=== PATIENT | male | born 1995 | race Caucasian/White ===

== ENCOUNTER 2017-12-31 18:00 | Emergency (ER) | payer SELFPAY ==
[~2017-12-31] VITALS: Ht 170.2 cm; Wt 76.7 kg
[2017-12-31 18:19] VITALS: TEMP 36.8; Ht 170.2 cm; Wt 76.7 kg
[2017-12-31] MEDS ORDERED: SODIUM CHLORIDE 0.9% 1000ML 1,000 ML IV STA (18:42)
[2017-12-31] MEDS ORDERED: VNTHFA/IN INH (18:42)
[2017-12-31] MEDS ORDERED: KETOROLAC TROMETHAMINE 30 MG/ML VIAL IV STA (18:42)
[2017-12-31] MEDS ORDERED: ALBUT/IPRATROP 3MG/0.5MG NEB 3 ML VIAL INH ONE (18:45)
[2017-12-31] MEDS ORDERED: DEXAMETHASONE **PF** INJ 10 MG/ML VIAL PO ONE (18:45)
--- NOTE | 2017-12-31 18:50 | EMERGENCY ROOM VISIT NOTE ---
History Report prepared by Judson: Paxton Avina Under the Supervision of: Dr. Ramon Gonzales M.D. First contact with patient: 18:35 Chief Complaint: RESPIRATORY PROBLEMS Stated Complaint: WAS TREATED W/INHALER,HARD TO BREATH History of Present Illness The patient is a 22 year old male who presents to the Emergency Room with complaints of worsening shortness of breath beginning a few weeks ago. The patient states he was evaluated at [facility] a week ago and was treated for pneumonia-like symptoms. He reports he was given a DuoNeb and inhaler; he was not given an antibiotic. The patient notes he was told to return to the ED if it worsens. He states he felt better until today. The patient reports he was driving here and started breathing slowly. He notes he developed a really sharp chest pain and felt two "pops" in his chest. The patient states he had three episodes on the way here. He reports his vision then began to blur and his hands and feet started tingling. The patient notes he has a history of anxiety, and he thinks breathing slowly caused his symptoms. He states he has also had a cough the past few weeks, but it has resolved. The patient reports he smokes 1.5 packs of cigarettes a day. He notes he is still using the inhaler, and his last dose was one hour ago. The patient states he does not have a PCP. He denies fevers, chills, nausea, vomiting, and a history of blood clots in the legs or lungs. Source of History: patient Onset: a few weeks ago Quality: other (SOB) Timing: worsening Modifying Factors (Worsening): breathing (slowly) Associated Symptoms: + cough (resolved), + chest pain (sharp pain with pop in his chest), No fevers, No chills, No nausea, No vomiting Note: Associated symptoms: blurry vision Review of Systems See HPI for pertinent positives and negatives. A total of ten systems were reviewed and were otherwise negative. Past Medical & Surgical Medical Problems: (1) Alcohol intoxication (2) Ankle sprain (3) Elbow injury (4) Facial contusion (5) Fall (6) Foot sprain (7) Hand abrasion (8) Hand injury (9) Hand laceration (10) Head injury (11) No Known Active Medical Problems (12) Visit for suture removal Family History Diabetes mellitus Social History Smoking Status: Current Every Day Smoker Alcohol Use: occasionally Drug Use: marijuana Marital Status: in relationship Housing Status: lives with significant other Occupation Status: employed Current/Historical Medications Scheduled Azithromycin (Zithromax), 250 MG PO DAILY Prednisone (Prednisone), 3 TAB PO DAILY Scheduled PRN Albuterol Hfa (Ventolin Hfa), 1 PUFF INH Q4 PRN for Shortness of Breath Ibuprofen Tab (Motrin), 800 MG PO Q8H PRN for Pain Allergies Coded Allergies: No Known Allergies (Unverified , 12/31/17) Physical Exam Vital Signs Date Time Temp Pulse Resp B/P (MAP) Pulse Ox O2 Delivery O2 Flow Rate FiO2 12/31/17 21:44 85 15 146/95 98 12/31/17 21:00 107 19 139/86 97 12/31/17 20:00 90 26 137/74 99 12/31/17 19:39 109 12/31/17 19:31 126/79 12/31/17 19:17 99 Room Air 12/31/17 19:14 90 20 97 Room Air 12/31/17 19:10 92 136/81 12/31/17 19:01 Room Air 12/31/17 18:19 36.8 99 20 135/83 100 Room Air Physical Exam GENERAL: Awake, alert, fatigued-appearing, in no distress HENT: Normocephalic, atraumatic. Oropharynx and mucous membranes are dry, otherwise unremarkable. EYES: Normal conjunctiva. Sclera non-icteric. NECK: Supple. No nuchal rigidity. FROM. No JVD. RESPIRATORY: Scant intermittent wheeze. CARDIAC: Regular rate, normal rhythm. Extremities warm and well perfused. Pulses equal. ABDOMEN: Soft, non-distended. No tenderness to palpation. No rebound or guarding. No masses. RECTAL: Deferred. MUSCULOSKELETAL: Chest examination reveals no tenderness. The back is symmetrical on inspection without obvious abnormality. There is no CVA tenderness to palpation. No joint edema. LOWER EXTREMITIES: Calves are equal size bilaterally and non-tender. No edema. No discoloration. NEURO: Normal sensorium. No sensory or motor deficits noted. SKIN: No rash or jaundice noted. Medical Decision & Procedures ER Provider Diagnostic Interpretation: X-ray: Per my interpretation, radiologist review. SINGLE VIEW CHEST CLINICAL HISTORY: Atypical chest pain. FINDINGS: An AP, portable, upright chest radiograph is compared to study dated 04/10/2015. The cardiomediastinal silhouette is unremarkable. There is minimal left basilar atelectasis. The lungs and pleural spaces are otherwise clear. No pneumothorax is seen. The bony thorax is grossly intact. IMPRESSION: No active disease in the chest. Electronically signed by: Lukas Murillo M.D. 12/31/2017 7:18 PM Dictated Date/Time: 12/31/2017 7:17 PM Laboratory Results 12/31/17 19:07 Red Blood Count 5.07, Mean Corpuscular Volume 89.2, Mean Corpuscular Hemoglobin 30.6, Mean Corpuscular Hemoglobin Concent 34.3, Mean Platelet Volume 8.7, Neutrophils (%) (Auto) 57.6, Lymphocytes (%) (Auto) 26.1, Monocytes (%) (Auto) 12.4, Eosinophils (%) (Auto) 2.9, Basophils (%) (Auto) 0.5, Neutrophils # (Auto ) 3.80, Lymphocytes # (Auto) 1.72, Monocytes # (Auto) 0.82, Eosinophils # (Auto ) 0.19, Basophils # (Auto) 0.03 12/31/17 19:07 Test 12/31/17 18:55 12/31/17 19:07 Influenza Type A Antigen Neg for Influ A (NEG) Influenza Type B Antigen Neg for Influ B (NEG) White Blood Count 6.59 K/uL (4.8-10.8) Red Blood Count 5.07 M/uL (4.7-6.1) Hemoglobin 15.5 g/dL (14.0-18.0) Hematocrit 45.2 % (42-52) Mean Corpuscular Volume 89.2 fL (80-100) Mean Corpuscular Hemoglobin 30.6 pg (25-34) Mean Corpuscular Hemoglobin Concent 34.3 g/dl (32-36) Platelet Count 215 K/uL (130-400) Mean Platelet Volume 8.7 fL (7.4-10.4) Neutrophils (%) (Auto) 57.6 % Lymphocytes (%) (Auto) 26.1 % Monocytes (%) (Auto) 12.4 % Eosinophils (%) (Auto) 2.9 % Basophils (%) (Auto) 0.5 % Neutrophils # (Auto) 3.80 K/uL (1.4-6.5) Lymphocytes # (Auto) 1.72 K/uL (1.2-3.4) Monocytes # (Auto) 0.82 K/uL (0.11-0.59) Eosinophils # (Auto) 0.19 K/uL (0-0.5) Basophils # (Auto) 0.03 K/uL (0-0.2) RDW Standard Deviation 46.3 fL (36.4-46.3) RDW Coefficient of Variation 14.3 % (11.5-14.5) Immature Granulocyte % (Auto) 0.5 % Immature Granulocyte # (Auto) 0.03 K/uL (0.00-0.02) Anion Gap 8.0 mmol/L (3-11) Est Creatinine Clear Calc Drug Dose 112.1 ml/min Estimated GFR () 129.3 Estimated GFR (Non- 111.6 BUN/Creatinine Ratio 9.3 (10-20) Calcium Level 9.0 mg/dl (8.5-10.1) Total Bilirubin 0.7 mg/dl (0.2-1) Direct Bilirubin 0.2 mg/dl (0-0.2) Aspartate Amino Transf (AST/SGOT) 113 U/L (15-37) Alanine Aminotransferase (ALT/SGPT) 143 U/L (12-78) Alkaline Phosphatase 113 U/L (45-117) Troponin I < 0.015 ng/ml (0-0.045) Total Protein 7.6 gm/dl (6.4-8.2) Albumin 4.0 gm/dl (3.4-5.0) Lipase 297 U/L (73-393) Laboratory results reviewed by me Medications Administered Medications (Trade) Dose Ordered Sig/Steve Route Start Time Stop Time Status Last Admin Dose Admin Sodium Chloride 1,000 ml @ 999 mls/hr Q1H1M STAT IV 12/31/17 18:42 12/31/17 19:42 DC 12/31/17 19:10 999 MLS/HR Albuterol/ Ipratropium (Duoneb) 12 ml ONE ONCE INH 12/31/17 18:45 12/31/17 18:49 DC 12/31/17 19:12 12 ML Dexamethasone Sodium Phosphate (Dexamethasone Inj Pf) 10 mg NOW ONCE PO 12/31/17 18:45 12/31/17 18:49 DC 12/31/17 19:10 10 MG Ketorolac Tromethamine (Toradol Inj) 15 mg NOW STAT IV 12/31/17 18:42 12/31/17 18:49 DC 12/31/17 19:11 15 MG Azithromycin (Zithromax Tab) 500 mg NOW STAT PO 12/31/17 21:21 12/31/17 21:22 DC 12/31/17 21:36 500 MG ECG Per My Interpretation Indication: SOB/dyspnea Rate (beats per minute): 94 Rhythm: normal sinus Findings: no acute ischemic change, other (Normal axis) ED Course 1840: The patient was evaluated in room C12B. A complete history and physical exam was performed. 2007: I reevaluated the patient and discussed his current exam and lab findings. 2130: I reevaluated the patient. Discussed results and discharge instructions: he verbalized understanding and agreement. The patient is ready for discharge. Medical Decision I reviewed the patient's past medical history, medications, and the nursing notes as described above. Differential diagnosis: Etiologies such as infections, reactive airway disease, pneumonia, pneumothorax , COPD, CHF, cardiac ischemia, pulmonary embolism, musculoskeletal, gastrointestinal, as well as others were entertained. The patient is a 22-year-old gentleman with a past medical history of 1.5 pack per day smoking who presents emergency department with cough congestion, shortness of breath, chest pain per hpi. Of note, the symptoms occur in the setting of having similar symptoms last week seen on outside hospital and treated with steroid and albuterol. On arrival, the patient is uncomfortable but no acute distress, afebrile stable vital signs. On exam the patient has scant intermittent wheeze. EKG unremarkable. Chest x-ray negative for pneumonia. Labs unremarkable including WBC and troponin within normal limits. Influenza negative. She feeling improved after IV fluid hydration, dexamethasone, continuous neb. Given the patient's smoking history and report of productive sputum will treat with azithromycin for bronchitis as well. I counseled the patient extensively on the importance of smoking cessation. Findings and plan for follow-up reviewed with patient. Patient agreeable and d/c 'd per discharge instructions. Medication Reconcilliation Current Medication List: was personally reviewed by me Blood Pressure Screening Patient's blood pressure: Normal blood pressure Blood pressure disposition: Did not require urgent referral Impression Primary Impression: Bronchitis Scribe Attestation The scribe's documentation has been prepared under my direction and personally reviewed by me in its entirety. I confirm that the note above accurately reflects all work, treatment, procedures, and medical decision making performed by me. Departure Information Dispostion Home / Self-Care Prescriptions Ibuprofen Tab (MOTRIN) 800 Mg Tab 800 MG PO Q8H Y for Pain for 7 Days, #21 TAB Prov: Ramon Gonzales M.D. 12/31/17 Prednisone (Prednisone) 20 Mg Tab 3 TAB PO DAILY for 4 Days, #12 TAB FOR 4 DAYS Prov: Ramon Gonzales M.D. 12/31/17 Azithromycin (Zithromax) 250 Mg Tab 250 MG PO DAILY, #4 TAB Prov: Ramon Gonzales M.D. 12/31/17 Referrals No Doctor, Assigned (PCP) Forms HOME CARE DOCUMENTATION FORM, IMPORTANT VISIT INFORMATION, WORK / SCHOOL INSTRUCTIONS Patient Instructions ED Bronchitis Asthmatic, My [facility] Additional Instructions Please follow up with your primary care physician in the next 1-3 days for re- evaluation. You likely have a bronchitis. Otherwise, your exam, EKG, chest xray, and lab results did not show signs of an emergent condition at this time. Prednisone and Azithromycin as directed. Acetaminophen and ibuprofen for pain and fever as needed. Saline nasal spray or [id number] Mucinex to help thin and clear mucus. Use your albuterol inhaler 2 puffs every 4 hours for the next 48 hours and then as needed thereafter. Drink plenty of fluids to ensure hydration. Return to the emergency department for worsening symptoms as described in the accompanying instructions.
[2017-12-31 19:14] VITALS: PULSE 90; O2SAT 97
[2017-12-31 19:18] LABS: BASO % 0.5 %; BASO ABS # 0.03 K/uL (0-0.2); EOS % 2.9 %; EOS ABS # 0.19 K/uL (0-0.5); HEMATOCRIT 45.2 % (42-52); HEMOGLOBIN 15.5 g/dL (14.0-18.0); IG# 0.03 K/uL (0.00-0.02); LYMPH % 26.1 %; LYMPH ABS # 1.72 K/uL (1.2-3.4); MEAN CELL VOLUME 89.2 fL (80-100); MEAN CORPUSCULAR HEMOGLOBIN 30.6 pg (25-34); MEAN CORPUSCULAR HGB CONC 34.3 g/dl (32-36); MEAN PLATELET VOLUME 8.7 fL (7.4-10.4); MONO % 12.4 %; MONO ABS # 0.82 K/uL (0.11-0.59); NEUT % 57.6 %; PLATELET COUNT 215 K/uL (130-400); RED CELL DISTRIBUTION WIDTH CV 14.3 % (11.5-14.5); RED CELL DISTRIBUTION WIDTH SD 46.3 fL (36.4-46.3); WHITE BLOOD COUNT 6.59 K/uL (4.8-10.8)
--- NOTE | 2017-12-31 19:20 | DIAGNOSTIC IMAGING REPORT ---
SINGLE VIEW CHEST CLINICAL HISTORY: Atypical chest pain. FINDINGS: An AP, portable, upright chest radiograph is compared to study dated 04/10/2015. The cardiomediastinal silhouette is unremarkable. There is minimal left basilar atelectasis. The lungs and pleural spaces are otherwise clear. No pneumothorax is seen. The bony thorax is grossly intact. IMPRESSION: No active disease in the chest. Electronically signed by: Lukas Murillo M.D. 12/31/2017 7:18 PM Dictated Date/Time: 12/31/2017 7:17 PM
[2017-12-31 19:37] LABS: ALT/SGPT 143 U/L (12-78); BLOOD UREA NITROGEN 9 mg/dl (7-18); CARBON DIOXIDE 28 mmol/L (21-32); CREATININE 0.95 mg/dl (0.60-1.40); GLUCOSE 99 mg/dl (70-99); LIPASE 297 U/L (73-393); POTASSIUM 3.2 mmol/L (3.5-5.1); SODIUM 140 mmol/L (136-145)
[2017-12-31 19:42] LABS: ALKALINE PHOSPHATASE 113 U/L (45-117); AST/SGOT 113 U/L (15-37); TOTAL PROTEIN 7.6 gm/dl (6.4-8.2)
[2017-12-31 19:44] LABS: INFLUENZA B ANTIGEN Neg for Influ B (NEG)
[2017-12-31] MEDS ORDERED: AZITHROMYCIN 250 MG TAB PO STA (21:21)
[2017-12-31] MEDS ORDERED: PRED20TA PO (21:22)
[2017-12-31] MEDS ORDERED: AZIT250T PO (21:22)
[2017-12-31] MEDS ORDERED: IBUP-1451 PO (21:23)
[2017-12-31 21:44] VITALS: BP 146/95; PULSE 85; O2SAT 98
== END 2017-12-31 21:36 | disposition home or self-care (01) ==
LOC: C.EDB 18:01 → C.EDC 21:36
DX: J40 Bronchitis, not specified as acute or chronic (principal); Z71.6 Tobacco abuse counseling; F17.210 Nicotine dependence, cigarettes, uncomplicated

== ENCOUNTER 2018-01-05 19:56 | Emergency (ER) | payer SELFPAY ==
[~2018-01-05] VITALS: Ht 170.2 cm; Wt 76.1 kg
[~2018-01-05 19:56] MED LIST: AZIT250T PO; IBUP-1451 PO; PRED20TA PO; VNTHFA/IN INH
[2018-01-05 19:57] VITALS: BP 138/78; PULSE 133; TEMP 36.3; O2SAT 97; Ht 170.2 cm; Wt 76.1 kg
--- NOTE | 2018-01-05 20:56 | DIAGNOSTIC IMAGING REPORT ---
L ELBOW MIN 3 VIEWS ROUTINE CLINICAL HISTORY: Left elbow pain COMPARISON: None. DISCUSSION: The fat pads are not displaced. There is posterior soft tissue edema. No acute fractures or dislocations are visualized. IMPRESSION: Moderate posterior soft tissue edema. No fractures or dislocations identified. Electronically signed by: Adiel Aparicio M.D. 01/05/2018 8:54 PM Dictated Date/Time: 01/05/2018 8:53 PM
--- NOTE | 2018-01-05 20:56 | DIAGNOSTIC IMAGING REPORT ---
L WRIST MIN 3 VIEWS ROUTINE CLINICAL HISTORY: Left wrist pain status post trauma COMPARISON: None. DISCUSSION: No fractures or dislocations are visualized. IMPRESSION: No fractures or dislocations identified. Electronically signed by: Adiel Aparicio M.D. 01/05/2018 8:55 PM Dictated Date/Time: 01/05/2018 8:54 PM
--- NOTE | 2018-01-06 14:47 | EMERGENCY ROOM VISIT NOTE ---
ED Visit Note First contact with patient: 20:01 Chief Complaint: Left elbow pain. History of Present Illness: Mr. Rocky mcneal is a 22-year-old white male who ambulates into the ED accompanied by his girlfriend and baby complaining of posterior and medial left elbow pain. Patient reports he was at home last night carrying a box weighing approximately 35 pounds. He was walking backwards and accidentally tripped and fell onto his elbow. He reports he immediately had pain in the elbow but it was mild in intensity. Throughout the day he has noted increasing pain, swelling and bruising of the elbow. He reports he left work because it was becoming more severe and elected to come to the emergency department for further evaluation and care. Currently he is complaining of a sharp and throbbing pain over the posterior medial aspect of the elbow. He rates his discomfort 6/10. His pain is nonradiating. His pain worsens with palpation in the last few degrees of flexion. He has not identified any alleviating factors related to the pain. He has not taken any medications for pain prior to arrival at the hospital. While doing his physical examination he also noted tenderness over the distal radius in the area of the styloid process. He reports this is not as severe as his other pain and had not noted any discomfort in this area prior to my physical examination. He denies any lightheaded or dizziness before the fall. He reports he did not strike his head at the time of the fall or have a loss of consciousness. He has had no signs of head injury since the fall. He denies neck pain, shoulder pain, humerus pain, previous significant injuries or surgeries to the elbow or wrist, left upper extremity weakness/numbness/tingling. Review of Systems: As noted above in history of present illness. 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 Allergies to Medications: Patient denies. Social History: Patient is currently employed; he feels safe in his home environment; he admits to tobacco and alcohol use. Physical Examination: Vital Signs: Date Time Temp Pulse Resp B/P (MAP) Pulse Ox O2 Delivery O2 Flow Rate FiO2 01/05/18 19:57 36.3 133 18 138/78 97 Room Air GENERAL: 22-year-old male in mild distress due to pain, nontoxic-appearing, afebrile and hemodynamically stable. NEUROLOGICAL: Awake, alert and oriented to person, place and time. Answering questions appropriately and following commands. Normal gait. Good hand eye coordination. No focal motor or sensory deficits. SKIN: Warm, dry and pink. LEFT UPPER EXTREMITY: No gross bony deformities. No tenderness throughout the shoulder or proximal humerus. Mild to moderate tenderness over the posterior and medial aspect of the elbow. I do not appreciate any bony deformities or crepitus. There is moderate swelling and bruising over the medial aspect of the elbow extending distally to the proximal forearm. He has near full range of motion with exception of the last few degrees of flexion which increases pressure in his elbow. Decreased range of motion in pronation and supination due to pain. No tenderness throughout the proximal radius and ulna. Mild tenderness over the styloid process of the ulna without bony deformity, bony crepitus, swelling or ecchymosis. Full range of motion of flexion, extension and radial and ulnar deviation of the wrist and flexion and extension of all fingers. Distal pulses, capillary refill and light sensation is intact throughout the extremity. ED Course: Patient is assessed as noted above. Patient's medication list was reviewed. Patient was offered pain medication and refused. Left Elbow X-Rays: Were read by myself and the radiologist showing no acute fractures or dislocations. Posterior soft tissue swelling was noted and no displacement of the anterior posterior fat pads. Left Wrist X-Rays: Were read by myself and the radiologist showing no acute fractures or dislocations. Patient was placed in a sling. Patient was educated about today's findings and instructed on his treatment plan ; he verbalized understanding and agreement with this plan. Clinical Impression: Left elbow contusion. Left wrist pain. Status post fall. Disposition: Patient discharged home in stable condition accompanied by his girlfriend; prior to departure he was reassessed and subjectively reported he was pain-free Plan: Comfort measures were discussed with the patient including alternating ibuprofen Tylenol, ice, sling use and rest. Patient was encouraged to follow-up with orthopedics if no better in 6-7 days. Patient was encouraged return the ED for worsening/uncontrolled swelling, uncontrolled pain, left arm weakness/numbness/tingling or any new/concerning symptoms.
== END 2018-01-05 21:15 | disposition home or self-care (01) ==
LOC: C.EDB 19:56 → C.EDD 21:15
DX: S50.02XA Contusion of left elbow, initial encounter (principal); M25.532 Pain in left wrist; W01.198A Fall on same level from slipping, tripping and stumbling with subsequent striking against other object, initial encounter; Y93.01 Activity, walking, marching and hiking; Y99.8 Other external cause status; Z98.890 Other specified postprocedural states; Z72.0 Tobacco use

== ENCOUNTER 2018-05-10 01:31 | Emergency (ER) | payer OTHER ==
[~2018-05-10] VITALS: Ht 170.2 cm; Wt 73.4 kg
[~2018-05-10 01:31] MED LIST changes: -IBUP-1451 PO; -PRED20TA PO
[2018-05-10 01:35] VITALS: TEMP 36.8; Ht 170.2 cm; Wt 73.4 kg
[2018-05-10] MEDS ORDERED: IBUPROFEN 600 MG TAB PO STA (01:54)
[2018-05-10 02:28] VITALS: BP 135/90; PULSE 100; O2SAT 95
--- NOTE | 2018-05-10 02:29 | EMERGENCY ROOM VISIT NOTE ---
ED Visit Note First contact with patient: 01:40 CHIEF COMPLAINT: Foot pain HISTORY OF PRESENT ILLNESS: This 22-year-old patient presents to the emergency department with mother complaining of swelling and pain in the left foot at rest and worse with weight bearing. The patient states he injured his foot on the deck. Patient states he has been drinking alcohol. He fell. He denies any other injuries. The patient rates the pain as throbbing and 10/10. The patient has had nothing for relief of the pain. The patient is barely able to walk. No numbness or weakness. No ankle pain. There are no lacerations of the foot. The patient is able to move all of their toes and their ankle without pain. Patient had club foot in the past and has had multiple surgeries to his feet which was done at [facility]. REVIEW OF SYSTEMS: GENERAL: A 6 system review of systems was completed with positives and pertinent negatives in the HPI. ALLERGIES: None MEDICATIONS: None PMH:Medical Problems: (1) Alcohol intoxication Status: Resolved (2) Ankle sprain Status: Resolved (3) Elbow injury Status: Resolved (4) Facial contusion Status: Resolved (5) Fall Status: Resolved (6) Foot sprain Status: Resolved (7) Hand abrasion Status: Resolved (8) Hand injury Status: Resolved (9) Hand laceration Status: Resolved (10) Head injury Status: Resolved (11) Visit for suture removal Status: Resolved SOCIAL HISTORY: Alcohol use PHYSICAL EXAM: Vital Signs: Reviewed Nurse's notes, vital signs stable. GENERAL : White male with EtOH odor and tobacco odor, in no acute distress, but appears in pain, well-developed, well-nourished. MUSCULOSKELATAL: There is no visual deformity of the left foot. There is no erythema, small contusion to the lateral aspect of the foot. There is no warmth. There is tenderness and swelling over the lateral aspect of the left foot. There is no tenderness over the lateral or medial malleolus. No tenderness of the tib/fib. The range of motion of the foot is limited secondary to pain. There is no tenderness over the plantar fascia. The skin is intact and there are no lacerations or puncture wounds. Dorsalis pedis pulse 2+. Capillary refill less than 2 seconds. EMERGENCY DEPARTMENT COURSE: I examined the patient. An X-ray of the left foot was reviewed by myself and my 10 and reveals a fracture. The patient was placed in a postop shoe and instructed on the use of crutches. Patient then demanded to be seen by a doctor and my attending evaluated the patient. Patient was advised to follow-up with [facility] in a few days or here in the ER sooner for severe pain, numbness, tingling, worsening signs or symptoms or as needed. The patient was discharged home in good condition. DIAGNOSIS: Left foot sprain TREATMENT: DO NOT drive, drink alcohol, operate machinery, or perform dangerous activities today. You were given medications in the ER that can affect your ability to safely function or operate a vehicle. Ibuprofen(Motrin, Advil) may be used for fever or pain. Use 600mg every six hours as needed. Take with food. Avoid using more than 2400mg in a 24 hour period. Do not use 2400mg per day for more than three consecutive days without physician direction. Prolonged inappropriate use can lead to stomach upset or ulcers. This medication can be taken if you need to drive, work, or perform activities which may be dangerous when taking narcotic pain medication. (AND/OR) Acetaminophen(Tylenol) may be used for fever or pain. Use 1000mg every six hours as needed. Avoid using more than 3000mg in a 24 hour period. This medication can be taken if you need to drive, work, or perform activities which may be dangerous when taking narcotic pain medication. Ice compresses for 20 minutes at a time four times daily for 2-3 days. Use the crutches as instructed. Rest and elevate your injury. Wear postop shoe for comfort. Do not have it so tight that you cannot feel your foot. Continue current medications. Return to the ER immediately for any numbness, tingling, severe pain, extreme swelling in the extremity or as needed. Call Orthopedics in 3-5 days if symptoms persist to arrange follow up for your injury. Problem List Medical Problems: (1) Alcohol intoxication Status: Resolved (2) Ankle sprain Status: Resolved (3) Elbow injury Status: Resolved (4) Facial contusion Status: Resolved (5) Fall Status: Resolved (6) Foot sprain Status: Resolved (7) Hand abrasion Status: Resolved (8) Hand injury Status: Resolved (9) Hand laceration Status: Resolved (10) Head injury Status: Resolved (11) Visit for suture removal Status: Resolved Current/Historical Medications No Active Prescriptions or Reported Meds Allergies Coded Allergies: No Known Allergies (Unverified , 12/31/17) Vital Signs Date Time Temp Pulse Resp B/P (MAP) Pulse Ox O2 Delivery O2 Flow Rate FiO2 05/10/18 01:35 36.8 102 18 143/89 94 Room Air Medications Administered Medications (Trade) Dose Ordered Sig/Steve Route Start Time Stop Time Status Last Admin Dose Admin Ibuprofen (Motrin Tab) 600 mg NOW STAT PO 05/10/18 01:54 05/10/18 01:56 DC 05/10/18 02:00 600 MG Departure Information Prescriptions No Active Prescriptions or Reported Meds Referrals Butch Ferreira M.D. (PCP) Patient Instructions My [facility]
--- NOTE | 2018-05-10 07:24 | DIAGNOSTIC IMAGING REPORT ---
L FOOT MIN 3 VIEWS ROUTINE CLINICAL HISTORY: 22 years-old Male presenting with fall, pain lateral. TECHNIQUE: Frontal, oblique, and lateral views of the left foot were obtained. COMPARISON: 08/04/2013. FINDINGS: Mild height loss of the longitudinal arch similar to prior exam. No acute fracture or malalignment. No advanced degenerative change. No radiographic soft tissue abnormality. IMPRESSION: 1. No acute osseous injury. 2. Findings could suggest pes planus. This would be better evaluated with weightbearing radiographs if there is clinical concern. Electronically signed by: Robert Cruz M.D. 05/10/2018 7:23 AM Dictated Date/Time: 05/10/2018 6:58 AM
== END 2018-05-10 02:29 | disposition home or self-care (01) ==
LOC: C.EDB 01:32
DX: S93.602A Unspecified sprain of left foot, initial encounter (principal); W19.XXXA Unspecified fall, initial encounter

== ENCOUNTER 2022-07-30 12:54 | Inpatient (IN) ==
[2022-07-30] MEDS ORDERED: HYDROmorphone INJ 1 MG/ML SYRINGE IV STA (12:59)
[2022-07-30] MEDS ORDERED: ONDANSETRON INJ 2 MG/ML 2 ML VIAL IV STA (12:59)
[2022-07-30] MEDS ORDERED: SODIUM CHLORIDE 0.9% 1000ML 1,000 ML IV ONE (13:00)
--- NOTE | 2022-07-30 13:13 | XRay Report ---
XR tibia fibula LT 2V HISTORY: 26 years-old Male Trauma acute pain of the left lower extremity status post trauma COMPARISON: None TECHNIQUE: 2 views of the left tibia and fibula FINDINGS: Acute comminuted, impacted and mildly displaced fracture of the fibular head and neck. Additional acu te comminuted fractures of the proximal tibia with fracture lines involving the lateral aspect of the medial tibial plateau and intercondylar eminence. Transverse fracture component involves the proxima l tibial metaphysis. The majority of the proximal tibial fracture involves the lateral tibial plateau which is displaced laterally 1.1 cm and the compressed approximately 6 mm. No dislocation. Moderate joint effusion with lipohemarthrosis. Mild spurring of the calcaneus. Mid to distal tibia and fibula appear intact. IMPRESSION: 1. Acute comminuted, impacted and displaced proximal tibial fracture with cortical depression of the lateral tibial plateau. 2. Acute, comminuted and displaced proximal fibular fracture. 3. Lipohemarthrosis of the knee. ACT 112: Negative or not required by law. The above report was generated using voice recognition software. It may contain grammatical, syntax o r spelling errors. Electronically signed by: Beto Sam M.D. 07/30/2022 1:11 PM
[2022-07-30 13:23] LABS: Basophils # (auto) 0.12 K/uL (0-0.2); Basophils % (auto) 1.1 %; Eosinophils # (auto) 0.06 K/uL (0-0.50); Eosinophils % (auto) 0.6 %; Hematocrit (blood only) 45.9 % (40.1-51.0); Hemoglobin 16.2 g/dl (14.0-18.0); Immature Granulocytes # (auto) 0.02 K/uL (0.00-0.02); Immature Granulocytes % (auto) 0.2 %; Lymphocytes # (auto) 1.71 K/uL (1.2-3.4); Lymphocytes % (auto) 16.2 %; Mean Corpuscular Hemoglobin 30.3 pg (25.0-34.0); Mean Corpuscular Hgb Conc 35.3 g/dL (32.0-36.0); Mean Platelet Volume 8.8 fL (9.4-12.4); Monocytes # (auto) 0.86 K/uL (0.24-0.82); Monocytes % (auto) 8.2 %; Neutrophils # (auto) 7.78 K/uL (1.4-6.5); Neutrophils % (auto) 73.7 %; Platelet Count 347 K/uL (130-400); RDW Coefficient of Variation 13.9 % (11.5-14.5); RDW Standard Deviation 44.3 fL (36.4-46.3); Red Blood Count 5.34 M/uL (4.63-6.08); White Blood Count 10.55 K/ul (4.8-10.8)
[2022-07-30] MEDS ORDERED: MULTI-VITAMIN INFUSION 10 ML, THIAMINE HCL 100 MG, FOLIC ACID 1 MG in SODIUM CHLORIDE 0... IV ONE (13:27)
[2022-07-30] MEDS ORDERED: LORazepam 1 MG/1 ML SYR IV STA (13:27)
[2022-07-30 13:49] LABS: Albumin Globulin Ratio 1.5 (0.9-2); Albumin Level 4.6 gm/dl (3.4-5.0); Bilirubin,Total 1.3 mg/dl (0.2-1.0); Calcium 9.7 mg/dl (8.5-10.1); Creatinine Clr Calc Pharmacy 102.8 ml/min; Est GFR (African American) 118.2 ml/min; Globulin 3.1 gm/dl (2.5-4.0); INR 1.1 (0.9-1.1); Partial Thromboplastin Ratio 0.9; Partial Thromboplastin Time 25.4 Seconds (21.0-31.0); Potassium 3.5 mmol/L (3.5-5.1); Prothrombin Time 11.2 Seconds (9.0-12.0); Total Protein 7.7 gm/dl (6.0-8.3)
[2022-07-30] MEDS: HYDROmorphone INJ 1 MG/ML SYRINGE IV PRN ×4 (15:19→20:56)
[2022-07-30] MEDS: NICOTINE 14 MG/24 HR PATCH TD SCH (15:21)
--- NOTE | 2022-07-30 15:28 | History & Physical Report ---
Date of Service July 30, 2022 Assessment & Plan (1) Leg fracture, left: Plan: Proximal tibial fracture, displaced proximal fibular fracture - Discussed extensively with ER provider who has been in touch with orthopedics, [facility], and tertiary care centers. Patient was recommended for transfer to a trauma center given fracture noted above. He is unfortunately not able to be transferred to [facility] and [facility] does not have trauma available this weekend. Case was reviewed between orthopedics and [facility], [facility] has accepted the patient for Monday but cannot take this weekend and require stabilization and admission to [facility] for the weekend. This was discussed with [facility] orthopedics and Dr. Lopez, anticipate operative intervention for stabilization tomorrow and ultimately transfer to [facility] where patient has been tentatively accepted for transfer on Monday. On ER assessment patient has been neurovascular intact. Reportedly with a history of some alcohol use, but no history of withdrawal and with negative alcohol on admission. Tib/fib x-ray 1. Acute comminuted, impacted and displaced proximal tibial fracture with cortical depression of the lateral tibial plateau. 2. Acute, comminuted and displaced proximal fibular fracture. 3. Lipohemarthrosis of the knee. Orthopedics consulted. Extensive discussion between ER w/ Dr. Lopez ortho and [facility]. External fixator and to OR tomorrow with [facility] for temporizing, need orthotrauma not available at [place] and refused for transfer this weekend but tentatively excepted for Monday as noted above - No head injury. CT-H pending. Patient has full range of motion in the neck and denies headache, head pain, neck pain Strict bedrest Neurovascular checks hourly Neurovascularly intact without signs of compartment syndrome and with intact PT/DP pulses and admitting exam Prior EtoH abuse. Last etoh was 3 days ago. - Has gone a week without alcohol just prior to that. - No heavy drinking in the last 6 months - Had shakes/tremors weats for 3-4 days when he stopped 6 months ago, none since. One sizure from withdrawal many years ago, doesn't remember how many jsut that it was due to alcohol. We will continue on AWSS protocol Banana bag ordered, thiamine ordered, continue IVFM Tobacco abuse About 0.75 pack/day use for many years Nicotine patch ordered Denies other chronic medical problems DVT prophylaxis: Pharmacal prophylaxis deferred due to risk of bleeding CODE STATUS: Full code Disposition: Medical telemetry for neurovascular checks and [place] [facility] Diet: N.p.o. pending surgical evaluation and intervention (2) Depression with anxiety: (3) Alcohol abuse: (4) Tobacco use: History of Present Illness Primary Care Provider: Butch Ferreira MD Patient is a 26-year-old male with a past medical history of alcohol abuse, tobacco use, lymphadenopathy, depression with anxiety, and low back pain No leukocytosis, hemoglobin normal, platelet 347. Sodium 133 on admission, potassium normal at 3.5. Baseline creatinine is normal, admitting creatinine is 1.0. Total bilirubin 1.3, down from prior 4.6. No transaminitis. Tip/fib x- ray 1. Acute comminuted, impacted and displaced proximal tibial fracture with cortical depression of the lateral tibial plateau. 2. Acute, comminuted and displaced proximal fibular fracture. 3. Lipohemarthrosis of the knee. Foot caught in box truck gate, fell off the back twisting knee. Patient seen at bedside, reports he had a mechanical fall of the back of a truck and has since had 10/10 pain going from his knee down to his leg. Feels sensation of soft touch is intact in the leg, but he cannot move his leg at all due to severe exacerbation of pain. He reports that he has a past history of severe alcohol abuse with 1 episode of seizure from withdrawal, but has not been a heavy drinker in many years at least 5. He reports that he most recently went for a full week without any alcohol use this past month. Did have some alcohol use 3 days ago, no alcohol use at all in the last 3 days. Denies tremors, shakes. Notes he is aware of what withdrawal feels like but has not had this since he was a heavy drinker years ago. Denies any lung problems, heart problems, or other medical problems. Reports he uses no daily medications. Reports he has had surgery on his feet as a child due to clubbing but is not sure of the details of this. Otherwise denies surgery Discussed extensively with ER provider who has been in touch with orthopedics, [facility], and tertiary care centers. Patient was recommended for transfer to a trauma center given fracture noted above. He is unfortunately not able to be transferred to [place], or [place] and [facility] does not have trauma available this weekend. Case was reviewed between orthopedics and [facility], [facility] has accepted the patient for Monday but cannot take this weekend and require stabilization and admission to [facility] for the weekend. This was discussed with [facility] orthopedics and Dr. Lopez, anticipate operative intervention for stabilization tomorrow and ultimately transfer to [facility] where patient has been tentatively accepted for transfer on Monday. On ER assessment patient has been neurovascular intact. Reportedly with a history of some alcohol use, but no history of withdrawal and with negative alcohol on admission. Medical History: Reviewed Medications: Reviewed Surgical History: Reviewed. Allergies: Reviewed Social History: Past heavy etoh use, rare use recently. 0.75ppd tobacco. +smoek marijuana use periodically. Code Status: Full Code. Allergies Allergy/AdvReac Type Severity Reaction Status Date / Time bee venom protein (honey bee) Allergy Intermediate Hives Verified 07/30/22 15:05 Home Medications Medication Instructions Recorded Confirmed Type albuterol sulfate 90 mcg/actuation 2 puff inhalation Q6H PRN 04/22/22 07/30/22 Rx aerosol inhaler (ProAir HFA) shortness of breath or wheezing #6.7 grams Past Med/Surg History Medical History Abrasion of face Abrasion of hand, right Acne Acute sinusitis Alcohol abuse Ankle joint pain Ankle sprain Anxiety and depression Backache Bursitis, traumatic Cellulitis of left leg Club-foot resolved with surgery as infant Dental disorder Elbow contusion Elbow injury Facial contusion Fall Foot sprain Hand abrasion Hand injury Hand laceration Head injury Head injury Injury of hand, right Open wound of hand Open wound of leg Rib pain on left side Right forearm injury Tobacco dependence Urinary frequency Urinary urgency Visit for suture removal Visual impairment Wheezing Surgical History H/O foot surgery infant Family History Grandmother (Maternal) Stroke Denies family history of Ovarian cancer Prostate cancer Myocardial infarction Breast cancer Lung cancer Colorectal cancer Social History Smoking Status: Current every day smoker Tobacco Type: Cigarettes Age Started Using Tobacco: 12; packs per day: 1; Years Smoked: 12; Cigarettes Per Day: 15-20; Second Hand Exposure: Yes; Hx Alcohol Use: Yes Alcohol type: beer Alcohol Intake Frequency Comment: "enough to keep me going. I stopped for 2-3 days and had a seizure" Hx Substance Use: Yes (Marijuana) Preferred Language: Sami Communication Ability: Effective Visual Impairment: No Limitations Hearing Ability: Normal Private Branch Exchange Operator Required: No Feels Safe at Home: Yes Childhood Exposure to Second-Hand Smoke: Yes (parents) Review of Systems Review of Systems: All systems reviewed & are unremarkable except as noted in Subjective Physical Exam Physical Exam: General: A&Ox3. NAD. Cooperative. HEENT: Atraumatic, normocephalic. Pupils equal and reactive to light. Vision and hearing grossly intact Pulm: CTAB A&P. -wheezes, -rales, -rhonchi. Symmetrical chest rise. No increase in work of breathing. No respiratory distress. Cardiac: Regular, tachycardic, -mrg. Radial pulses intact and symmetrical. Abdominal: Nontender, nondistended, soft. BS present. Extremities: Left leg externally rotated resting up on a pillow. Contusion at proximal medial left lower leg. Diffusely tender to palpation from the knee through the bilateral ankle. PT pulse and DP pulse are both palpable on the left and symmetrical compared to the right. Cap refill is less than 2 seconds. Sensation is intact to the toes bilaterally and symmetrically to soft touch. Patient is able to wiggle toes on the left foot, any other movement of the left lower extremity is limited by pain. Results & Data Results & Data ([facility]) Vital Signs (Past 12 Hours) Vital Signs Temp Pulse Resp BP Pulse Ox O2 Del Method 07/30/22 14:30 97 H 18 95 07/30/22 14:30 148/87 H 07/30/22 14:01 102 H 20 07/30/22 14:01 154/81 H 07/30/22 14:00 110 H 26 H 07/30/22 13:30 112 H 24 135/102 H 94 07/30/22 13:10 37.0 C 125 H 24 163/100 H 100 Room Air PG Care Time/CCT Total # of Minutes Spent Total Time Spent with Patient: Total time spent is greater than 50% in coordination of care (as documented) at patient's floor/unit and/or counseling patient: Coding Level of Care Code 18515 Initial Inpt Care Lvl 3 Diagnoses Leg fracture, left S82.92XA Depression with anxiety F41.8 Alcohol abuse F10.10 Tobacco use Z72.0
[2022-07-30] MEDS ORDERED: ACETAMINOPHEN 325 MG TAB PO PRN (17:57)
[2022-07-30] MEDS ORDERED: NALOXONE HCL 0.4 MG/1 ML VIAL/CARP IV PRN (17:57)
[2022-07-30] MEDS ORDERED: POLYETHYLENE (MIRALAX) 17 GM PACK PO PRN (17:57)
[2022-07-30] MEDS ORDERED: LORazepam 3 MG in SYRINGE 0 ML IV PRN (17:57)
[2022-07-30] MEDS ORDERED: Ativan IV Alcohol Withdrawal--Active Protocol IV PRN (17:57)
[2022-07-30] MEDS ORDERED: HYDROmorphone INJ 0.5 MG/0.5 ML SYR IV PRN (17:57)
[2022-07-30] MEDS: LACTATED RINGER'S 1,000 ML IV SCH (19:36)
[2022-07-30] MEDS: ACETAMINOPHEN 1,000 MG/100 ML VIAL IV PRN (19:37)
[2022-07-30] MEDS: FOLIC ACID 1 MG in SYRINGE 9.8 ML IV SCH (19:37)
[2022-07-30] MEDS: THIAMINE HCL 100 MG in SYRINGE 9 ML IV SCH (19:37)
--- NOTE | 2022-07-30 23:24 | Communication Note ---
Date of Service: July 30, 2022 S: Notified by RN that patient complaining of worsening pain to the LLE. On my presentation, patient complaining of worsening pain to the LLE that is not controlled with current analgesic regimen. He is also complaining of paresthesia, described as " a different sensation" and the sensation of "the skin ripping apart." O: Left lower extremity is in external immobilizer. There is some pallor to the left lower extremity. There is ecchymosis to the medial aspect of proximal tibial region. Leg compartments are firm with minimal compressability. Pulses are not palpable but are dopplerable. Patient w/ active flexion and extension of toes but no active flexion or extension of the ankle. Minimal passive flexion/extension of ankle and patient does have significant pain with these movements. Sensation to light touch in tact. A/P: Concern for development of compartment syndrome. Called Dr. Lopez ([facility]) to discuss case/concern for developing compartment syndrome; he is agreeable to come in for urgent surgical intervention. Maintain NPO status. Type and cross stat ordered. I also placed a stat consult for anesthesiology for surgery and case reviewed with Dr. Fong. Addendum -- Fasciotomy and application of external fixator performed per ortho (see surgery note). He did receive 2g Ancef in OR. Will check BMP, mag, and ionized calcium post-op. Further post-op surgical care per ortho recommendations. Resident Activity Tracking Resident Involvement: Resident Care Provided Care Provided: [facility] Medicine
[2022-07-31] MEDS ORDERED: PROPOFOL IV EMULSION 10 MG/ML 20 ML VIAL IV ONE (00:43)
[2022-07-31] MEDS ORDERED: fentaNYL citrate 100 MCG/2 ML VIAL ONE ×3 (00:43→01:33)
[2022-07-31] MEDS ORDERED: LIDOCAINE 2% 2 ML VIAL/AMP(20MG/ML) INFIL ONE (00:45)
--- NOTE | 2022-07-31 00:46 | History & Physical Bridge Note ---
Date of Service July 31, 2022 History & Physical Bridge Note I have examined the patient, reviewed the History & Physical and in the interval since the performance of the History & Physical I have noted the following changes of clinical significance: no changes noted. Examined patient at bedside, was called this evening by nursing reporting that the patient was having some increasing paresthesias and pain in his left lower extremity. Concern for development of compartment syndrome. Saw and evaluated patient. We had a discussion regarding risk benefits potential complications of left lower extremity fasciotomies with placement of knee spanning external fixator. Risk include but are not limited to: Infection, neurovascular injury, muscle necrosis, DVT, future surgery. After reviewing these he elected proceed with surgical intervention and written consent was obtained.
--- NOTE | 2022-07-31 00:59 | Orthopedic Consultation ---
Date of Consultation July 31, 2022 Assessment & Plan (1) Leg fracture, left: N.p.o. Pain control Medical management Antibiotics on-call to the OR Plan for OR for left lower extremity fasciotomies and placement of a spanning external fixator. History of Present Illness Reason for Consultation: Left tibial plateau/proximal fibula fracture Attending Physician: Robert Ramirez MD History of Present Illness 26-year-old male who presented to emergency department this afternoon after sustaining an injury to his left leg. He reports that he twisted his leg and fell on a box truck gate. He noted immediate pain and inability to ambulate. He was taken to [facility] emergency department where radiographs were obtained which demonstrated a left tibial plateau fracture with associated proximal fibula fracture. Radiographs did show involvement of both condyles with significant joint depression on the lateral surface with widening and the associated fibula fracture. Given the bicondylar nature of the fracture potential need for dual column plating I did discuss with emergency room personnel that patient would likely be best treated by a dedicated traumatologist and recommended transfer to a tertiary care facility. Unfortunately Dr Burgos with [facility] denied the transfer and recommended that the patient be temporized at [facility] and then sent to [facility] next week for definitive care. Patient was then admitted to medical service at [facility]. Allergies Allergy/AdvReac Type Severity Reaction Status Date / Time bee venom protein (honey bee) Allergy Intermediate Hives Verified 07/30/22 15:05 Home Medications Medication Instructions Recorded Confirmed Type albuterol sulfate 90 mcg/actuation 2 puff inhalation Q6H PRN 04/22/22 07/30/22 Rx aerosol inhaler (ProAir HFA) shortness of breath or wheezing #6.7 grams Patient History Medical History Abrasion of face Abrasion of hand, right Acne Acute sinusitis Alcohol abuse Ankle joint pain Ankle sprain Anxiety and depression Backache Bursitis, traumatic Cellulitis of left leg Club-foot resolved with surgery as infant Dental disorder Elbow contusion Elbow injury Facial contusion Fall Foot sprain Hand abrasion Hand injury Hand laceration Head injury Head injury Injury of hand, right Open wound of hand Open wound of leg Rib pain on left side Right forearm injury Tobacco dependence Urinary frequency Urinary urgency Visit for suture removal Visual impairment Wheezing Surgical History H/O foot surgery Family History Grandmother (Maternal) Stroke Denies family history of Ovarian cancer Prostate cancer Myocardial infarction Breast cancer Lung cancer Colorectal cancer Social History Smoking Status: Current every day smoker Tobacco Type: Cigarettes Age Started Using Tobacco: 12; packs per day: 1; Years Smoked: 12; Cigarettes Per Day: 15-20; Second Hand Exposure: Yes; Hx Alcohol Use: Yes Alcohol type: beer Alcohol Intake Frequency Comment: "enough to keep me going. I stopped for 2-3 days and had a seizure" Hx Substance Use: Yes Last Used Substance Other:: this morning 07/30/22 Preferred Language: Latvian Communication Ability: Effective Visual Impairment: No Limitations Hearing Ability: Normal Rehab Therapy Manager Required: No Beliefs That Will Affect Care: None Current Living Situation: Alone Feels Safe at Home: Yes Safety Concerns: Feels Safe At This Time Childhood Exposure to Second-Hand Smoke: Yes (parents) Physical Exam Constitutional: General: Oriented to person place and time, complaining of left leg pain Musculoskeletal: Left lower extremity -In the immobilizer -There is ecchymosis and edema present over the proximal tibia and knee, moderate suprapatellar effusion -Leg compartments are firm and slightly compressible. Patient does have pain with passive dorsiflexion/plantarflexion of the foot -Sensation intact to light touch saphenous/superficial peroneal nerve/deep peroneal nerve/tibial/sural nerve distributions with some mild paresthesias -Fires tibialis anterior/extensor houses longus/gastrocsoleus complex Palpable dorsalis pedis and posterior tibial pulses with brisk capillary refill Results & Data ([facility]) Vital Signs (Past 12 Hours) Vital Signs Temp Pulse Pulse Resp BP BP Pulse Ox 07/30/22 20:00 71 18 100 07/30/22 20:00 164/97 H 07/30/22 19:01 172/86 H 07/30/22 19:01 77 24 91 07/30/22 19:00 79 19 92 07/30/22 20:00 07/30/22 18:05 77 18 100 07/30/22 18:05 159/96 H 07/30/22 18:00 98 H 23 100 07/30/22 17:57 07/30/22 18:02 36.6 C 74 14 159/96 H 99 07/30/22 17:30 106 H 24 07/30/22 17:30 165/96 H 07/30/22 17:00 94 H 27 H 07/30/22 17:00 151/96 H 07/30/22 16:30 71 19 07/30/22 16:30 162/90 H 07/30/22 16:00 100 H 30 H 07/30/22 16:00 165/98 H 07/30/22 15:30 90 19 07/30/22 15:30 162/87 H 07/30/22 15:00 78 18 92 07/30/22 15:00 144/78 H 07/30/22 14:30 97 H 18 95 07/30/22 14:30 148/87 H 07/30/22 14:01 102 H 20 07/30/22 14:01 154/81 H 07/30/22 14:00 110 H 26 H 07/30/22 13:30 112 H 24 135/102 H 94 07/30/22 13:10 37.0 C 125 H 24 163/100 H 100 Pulse Ox O2 Del Method O2 Del Method O2 Flow Rate 07/30/22 20:00 07/30/22 20:00 07/30/22 19:01 07/30/22 19:01 07/30/22 19:00 07/30/22 20:00 Nasal Cannula 2 07/30/22 18:05 07/30/22 18:05 07/30/22 18:00 07/30/22 17:57 90 Room Air 07/30/22 18:02 Room Air 07/30/22 17:30 07/30/22 17:30 07/30/22 17:00 07/30/22 17:00 07/30/22 16:30 07/30/22 16:30 07/30/22 16:00 07/30/22 16:00 07/30/22 15:30 07/30/22 15:30 07/30/22 15:00 07/30/22 15:00 07/30/22 14:30 07/30/22 14:30 07/30/22 14:01 07/30/22 14:01 07/30/22 14:00 07/30/22 13:30 07/30/22 13:10 Room Air Diagnostic Findings Left knee/tibia-fibula radiographs reveal a bicondylar left tibial plateau fracture with associated fibula fracture. There is joint depression involving the lateral surface with condylar widening. Fracture does extend into the medial cortex with some mild displacement
[2022-07-31] MEDS ORDERED: HYDROmorphone INJ 2 MG/ML SYR/VIAL ONE (01:22)
--- NOTE | 2022-07-31 01:51 | Anesthesiology Consultation ---
Date of Service July 31, 2022 Assessment & Plan Chart Review Chart Review: Acceptable Risk for Surgery Consults Requested none History Surgery Operation Date: 07/31/22 01:00 Proposed Procedures p ORIF Tibial Plateau Fracture(Left) - Beto Lopez DO Height/Weight Height: 5 ft 7 in Weight: 78 kg Allergies Allergy/AdvReac Type Severity Reaction Status Date / Time bee venom protein (honey bee) Allergy Intermediate Hives Verified 07/30/22 15:05 Medications Home Medications Medication Instructions Recorded Confirmed Last Taken albuterol sulfate 90 mcg/actuation 2 puff inhalation Q6H PRN 04/22/22 07/30/22 Unknown aerosol inhaler (ProAir HFA) shortness of breath or wheezing #6.7 grams Active Medications Generic Name Dose Route Start Last Admin Trade Name Freq PRN Reason Stop Dose Admin Hydromorphone HCl 1 mg 07/30/22 17:57 07/30/22 20:56 Hydromorphone Inj 1 Mg/Ml Syringe IV 08/13/22 17:56 1 mg Q3H PRN Administration Severe Pain (7,8,9,10) on NRS Acetaminophen 1,000 mg in 100 mls @ 400 mls/hr 07/30/22 17:57 07/30/22 19:52 Ofirmev IV 08/02/22 17:56 Infused Q8H PRN Infusion Fever/Mild Pain (Pain 1,2,3) Lactated Ringer's 1,000 mls @ 120 mls/hr 07/30/22 17:57 07/30/22 19:36 Lr IV 08/29/22 17:56 120 mls/hr .Q8H20M MIKE Administration Folic Acid 1 mg/ Syringe 10 mls @ 5 mls/min 07/30/22 18:30 07/30/22 19:37 IV 08/29/22 18:29 5 mls/min QAM MIKE Administration Thiamine HCl 100 mg/ Syringe 10 mls @ 2 mls/min 07/30/22 18:30 07/30/22 19:37 IV 08/29/22 18:29 2 mls/min QAM MIKE Administration Nicotine 14 mg 07/30/22 15:15 07/30/22 15:21 Nicotine 14 Mg/24 Hr Patch TD 08/29/22 15:14 14 mg QAM MIKE Administration NPO Date Last Intake of Fluids: 07/30/22 Time Last Intake of Fluids: 07:00 Date Last Intake of Solids: 07/30/22 Time Last Intake of Solids: 07:00 Past Medical History Medical History Abrasion of face Abrasion of hand, right Acne Acute sinusitis Alcohol abuse Ankle joint pain Ankle sprain Anxiety and depression Backache Bursitis, traumatic Cellulitis of left leg Club-foot resolved with surgery as Dental disorder Elbow contusion Elbow injury Facial contusion Fall Foot sprain Hand abrasion Hand injury Hand laceration Head injury Head injury Injury of hand, right Open wound of hand Open wound of leg Rib pain on left side Right forearm injury Tobacco dependence Urinary frequency Urinary urgency Visit for suture removal Visual impairment Wheezing Past Family History Family History Grandmother (Maternal) Stroke Denies family history of Ovarian cancer Prostate cancer Myocardial infarction Breast cancer Lung cancer Colorectal cancer Past Surgical History Surgical History H/O foot surgery Social History Smoking Status: Current every day smoker tobacco type: cigarettes Smoking cigarettes per day: 15-20 Hx Alcohol Use: Yes Alcohol type: beer Alcohol Intake Frequency Comment: no etoh x days Hx Substance Use: Yes substance use type: marijuana Last Used Substance Other:: this morning 07/30/22 Physical Exam Vital Signs Last Vital Signs Temp 36.6 C 07/30/22 18:02 Pulse 77 07/31/22 00:30 Resp 22 07/31/22 00:30 BP 147/101 H 07/31/22 00:00 Pulse Ox 93 07/31/22 00:30 O2 Del Method 07/30/22 20:00 O2 Flow Rate 2 07/30/22 20:00 Testing Laboratory Results 07/30/22 13:11 07/30/22 13:11 PT 11.2 Seconds (9.0-12.0) 07/30/22 13:11 INR 1.1 (0.9-1.1) 07/30/22 13:11 APTT 25.4 Seconds (21.0-31.0) 07/30/22 13:11
[2022-07-31] MEDS ORDERED: ePHEDrine sulfate 50 MG/ML AMP IV PRN (02:06)
[2022-07-31] MEDS ORDERED: ATROPINE SULFATE 0.1 MG/ML 10ML SYR IV PRN (02:06)
[2022-07-31] MEDS ORDERED: fentaNYL citrate 100 MCG/2 ML VIAL IV PRN (02:06)
[2022-07-31] MEDS ORDERED: HYDROmorphone INJ 2 MG/ML SYR/VIAL IV PRN (02:06)
[2022-07-31] MEDS ORDERED: ONDANSETRON INJ 2 MG/ML 2 ML VIAL IV PRN (02:06)
[2022-07-31] MEDS ORDERED: PROMETHAZINE HCL 12.5 MG in SODIUM CHLORIDE 0.9% 50 ML IV PRN (02:06)
[2022-07-31] MEDS ORDERED: ONDANSETRON INJ 2 MG/ML 2 ML VIAL ONE (02:26)
[2022-07-31] MEDS ORDERED: DEXAMETHASONE SOD INJ 4 MG/ML VIAL ONE (02:26)
--- NOTE | 2022-07-31 02:45 | Post Operative Brief Note ---
Immediate Post Op Note v1 Date of Surgery July 31, 2022 Pre & Post Diagnosis Operation Date: 07/31/22 01:00 Pre-Op Diagnosis: Left Tibial Plateau/Proximal Fibula Fracture, Possible Compartment Syndrome Post-Op Diagnosis: Left Tibial Plateau/Proximal Fibula Fracture, Possible Compartment Syndrome I identified the patient and participated in the time-out.: Yes Procedure Operation Date: 07/31/22 01:00 Actual Procedures p Left Leg Fasciotomies with Application of Wound Vac and Left Knee Spanning External Fixator (Left) - Beto Lopez DO Surgeon Beto Lopez, Supervisor [employer] none Estimated Blood Loss 50 Findings Consistent with Post-Op Diagnosis see dictation Complications none
[2022-07-31] MEDS: LACTATED RINGER'S 1,000 ML IV SCH ×3 (03:46→18:38)
--- NOTE | 2022-07-31 03:46 | Anesthesiology Progress Note ---
Date of Service July 31, 2022 Anesthesia Post Procedure Vital Signs Vital Signs: Temp Pulse Pulse Resp BP BP Pulse Ox 07/31/22 03:10 118 H 20 170/105 H 95 07/31/22 03:00 108 H 20 170/105 H 96 07/31/22 02:50 37.0 C 118 H 20 155/100 H 96 07/31/22 00:30 77 22 93 07/31/22 00:00 75 18 90 07/31/22 00:00 147/101 H 07/30/22 23:30 132 H 26 H 93 07/30/22 23:00 77 17 07/30/22 23:00 139/96 07/30/22 22:30 83 18 91 07/30/22 22:00 71 16 94 07/30/22 22:00 170/100 H 07/30/22 21:30 74 17 99 07/30/22 21:00 118 H 23 93 07/30/22 21:00 172/98 H 07/30/22 20:30 77 0 L 95 07/30/22 20:00 71 18 100 07/30/22 20:00 164/97 H 07/30/22 19:01 172/86 H 07/30/22 19:01 77 24 91 07/30/22 19:00 79 19 92 07/30/22 20:00 07/30/22 18:05 77 18 100 07/30/22 18:05 159/96 H 07/30/22 18:00 98 H 23 100 07/30/22 17:57 07/30/22 18:02 36.6 C 74 14 159/96 H 99 07/30/22 17:30 106 H 24 07/30/22 17:30 165/96 H 07/30/22 17:00 94 H 27 H 07/30/22 17:00 151/96 H 07/30/22 16:30 71 19 07/30/22 16:30 162/90 H 07/30/22 16:00 100 H 30 H 07/30/22 16:00 165/98 H 07/30/22 15:30 90 19 07/30/22 15:30 162/87 H 07/30/22 15:00 78 18 92 07/30/22 15:00 144/78 H 07/30/22 14:30 97 H 18 95 07/30/22 14:30 148/87 H 07/30/22 14:01 102 H 20 07/30/22 14:01 154/81 H 07/30/22 14:00 110 H 26 H 07/30/22 13:30 112 H 24 135/102 H 94 07/30/22 13:10 37.0 C 125 H 24 163/100 H 100 Pulse Ox O2 Del Method O2 Del Method O2 Flow Rate 07/31/22 03:10 Oxymask 10 07/31/22 03:00 Oxymask 10 07/31/22 02:50 Oxymask 10 07/31/22 00:30 07/31/22 00:00 07/31/22 00:00 07/30/22 23:30 07/30/22 23:00 07/30/22 23:00 07/30/22 22:30 07/30/22 22:00 07/30/22 22:00 07/30/22 21:30 07/30/22 21:00 07/30/22 21:00 07/30/22 20:30 07/30/22 20:00 07/30/22 20:00 07/30/22 19:01 07/30/22 19:01 07/30/22 19:00 07/30/22 20:00 Nasal Cannula 2 07/30/22 18:05 07/30/22 18:05 07/30/22 18:00 07/30/22 17:57 90 Room Air 07/30/22 18:02 Room Air 07/30/22 17:30 07/30/22 17:30 07/30/22 17:00 07/30/22 17:00 07/30/22 16:30 07/30/22 16:30 07/30/22 16:00 07/30/22 16:00 07/30/22 15:30 07/30/22 15:30 07/30/22 15:00 07/30/22 15:00 07/30/22 14:30 07/30/22 14:30 07/30/22 14:01 07/30/22 14:01 07/30/22 14:00 07/30/22 13:30 07/30/22 13:10 Room Air Pain Intensity Left Leg: Pain Intensity: 10 Transfer of Care Handoff Completed per policy Notes Mental Status: alert / awake / arousable and participated in evaluation Patient Amnestic to Procedure: Yes Nausea / Vomiting: adequately controlled Pain: adequately controlled Airway Patency, RR, SpO2: stable & adequate BP & HR: stable & adequate Hydration State: stable & adequate Anesthetic Complications: no major complications apparent
[2022-07-31 04:18] LABS: Basophils # (auto) 0.04 K/uL (0-0.2); Basophils % (auto) 0.3 %; Eosinophils # (auto) 0.02 K/uL (0-0.50); Eosinophils % (auto) 0.2 %; Hematocrit (blood only) 39.6 % (40.1-51.0); Hemoglobin 13.4 g/dl (14.0-18.0); Immature Granulocytes # (auto) 0.03 K/uL (0.00-0.02); Immature Granulocytes % (auto) 0.2 %; Lymphocytes # (auto) 0.93 K/uL (1.2-3.4); Lymphocytes % (auto) 7.7 %; Mean Corpuscular Hgb Conc 33.8 g/dL (32.0-36.0); Mean Corpuscular Volume 88.8 fL (80.0-100.0); Mean Platelet Volume 9.2 fL (9.4-12.4); Monocytes # (auto) 0.91 K/uL (0.24-0.82); Monocytes % (auto) 7.5 %; Neutrophils # (auto) 10.16 K/uL (1.4-6.5); Neutrophils % (auto) 84.1 %; Platelet Count 245 K/uL (130-400); RDW Coefficient of Variation 13.7 % (11.5-14.5); Red Blood Count 4.46 M/uL (4.63-6.08); White Blood Count 12.09 K/ul (4.8-10.8)
[2022-07-31] MEDS: HYDROmorphone INJ 1 MG/ML SYRINGE IV PRN ×3 (04:32→11:01)
[2022-07-31 05:05] LABS: BUN Creatinine Ratio 7.1 (10-20); Calcium 8.5 mg/dl (8.5-10.1); Creatinine Clr Calc Pharmacy 146.9 ml/min; Est GFR (African American) 148.9 ml/min; Est GFR (Non-African American) 128.4 ml/min; Magnesium 1.4 mg/dl (1.7-2.4)
[2022-07-31 05:06] LABS: Albumin Globulin Ratio 1.3 (0.9-2); Albumin Level 3.7 gm/dl (3.4-5.0); BUN Creatinine Ratio 7.2 (10-20); Bilirubin,Total 1.1 mg/dl (0.2-1.0); Calcium 8.5 mg/dl (8.5-10.1); Est GFR (African American) 149.7 ml/min; Est GFR (Non-African American) 129.2 ml/min; Globulin 2.9 gm/dl (2.5-4.0); Total Protein 6.6 gm/dl (6.0-8.3)
--- NOTE | 2022-07-31 07:41 | Hospitalist Progress Note ---
Date of Service July 31, 2022 Assessment & Plan (1) Leg fracture, left: Plan: Pt is a 26 yo male with PMH of alcohol abuse, tobacco use, anxiety, and depression presenting for a leg injury after a fall. Pt was found to have a comminuted, displaced left tibia and fibula fracture requiring trauma ortho intervention. Pt also required fasciotomy and external fixator d/t concern for compartment syndrome. Displaced left tibia and fibula fracture - s/p fasciotomy and external fixator - pt requiring ortho trauma for definitive management- tentative transfer to [facility] tomorrow as they do not have trauma ortho this weekend - wound vac currently in place with external fixator - pt pain still 07/11, has been receiving dilaudid q3hr as able in addition to tylenol - pain not controlled w/ PRN use, started dilaudid [employer] at 0.2 mg q15 min HTN w/ tachycardia - reactive to pain vs. PE vs. rhythm concern vs. ? - Pt denies SOB, chest pain, telemetry NSR - O2 sats have been as low as 88, usually occurring receiving dilaudid- pt does not use O2 when offered - most likely pain induced tachycardia/HTN at this point, if symptoms develop and/or O2 sats drop, low threshold for CTA chest for possible PE - pain control as above - database management specialist consulted Hx of alcohol abuse - currently using AWSS - lorazepam PRN based on [place] Tobacco use - nicotine patch 14 mg q24hr (2) Depression with anxiety: (3) Alcohol abuse: (4) Tobacco use: (5) Compartment syndrome of left lower extremity: Plan FEN: LR at 120, folic acid, thiamine DVT ppx: lovenox 30 mg BID Code: Full Dispo: PCU while here, [facility] tomorr Admission and Anticipated Discharge Date Admission Date: July 30, 2022 Supervising Physician Co-Signing Physician Notes I personally examined the patient and verified all frey points of history and exam, discussed case, and agree with decision making with Dr Husain. Feeling pain. [employer] seems to help, but it is a little bit hard to tell if it wears off too quickly, if he is not maximizing utilization, if it does not have quite enough pain relief when he hits the button, or some combination of all 3. No chest pain no shortness of breath, otherwise feeling reasonable. Discussed with nursingthey note that pain control has been the main issue through the day. Vitals noted, in general he is sleeping comfortably appears to be in no distress. HEENT normocephalic atraumatic mucous membranes moist. Cardio is tachycardic without rubs murmurs gallops. Lungs are clear bilaterally no rales rhonchi or wheezes with good effort. Left lower extremity has external fixator no tracking erythema distal cap refill intact Traumatic fracturewith subsequent compartment syndromefortunately no clear evidence of rhabdomyolysis, no evidence of infection at this time. External fixatoranticipate transfer to tertiary tomorrow Tachycardiasuspect most likely pain related given that it does seem to wax and wane with his pain control. Does not appear to be in alcohol withdrawal. No signs or symptoms of infection otherwisei.e. sepsis exceedingly unlikely (and checking CRP and procalcitonin for completeness) and of course follow serial exams. On good pharmacologic DVT prophylaxisbut of course with trauma PE or fat embolus are both on the differential, but with no chest pain, no respiratory distress, 99% on room airthis seems unlikely. Continue to follow closely. DVT prophylaxisLovenox. Otherwise as above Subjective Pt is a 26 yo male with PMH of alcohol abuse, tobacco use, anxiety, and depression presenting for a leg injury after a fall. Pt presented to the ER yesterday after falling from a truck bed by getting his left foot stuck and twisting his knee. Xray showed comminuted, displaced fracture of left proximal tibia and fibula. Due to the nature of the fracture, it was thought the pt needed to be transferred for trauma ortho. However, no hospital was able to take him- transfer tentatively planned for Monday to [facility]. After he was admitted here, pt developed pain that was no longer controlled with medications, a "different sensation", and the feeling that his skin is ripping apart. Ortho consulted and pt took to OR for fasciotomy and external fixator. Today, pt is still in 10/10 pain not controlled with dilaudid. Pt is denying any new concerns like chest pain or SOB. Physical Exam Constitutional: Uncomfortable appearing. Tachycardiac and hypertensive. O2 sat low 90s on RA. Tmax 38C. Eyes: + conjunctival abnormality Respiratory: CTA bilaterally. No rhonchi, wheezing, or crackles. Non labored breathing. Cardiovascular: Regular rhythm, tachycardic. No murmur noted. Skin: no rashes, warm and dry Psychiatric: Alert. Mood and affect congruent. Results & Data Results & Data ([facility]) Vital Signs (Past 12 Hours) Vital Signs Temp Pulse Pulse Resp BP BP Pulse Ox 07/31/22 05:15 37.7 C H 119 H 17 95 07/31/22 05:15 162/99 H 07/31/22 05:00 37.7 C H 118 H 13 94 07/31/22 05:00 160/105 H 07/31/22 04:45 37.8 C H 136 H 17 93 07/31/22 04:45 150/102 H 07/31/22 04:30 37.8 C H 123 H 19 92 07/31/22 04:30 160/103 H 07/31/22 04:15 37.8 C H 136 H 18 90 07/31/22 04:15 152/90 H 07/31/22 04:00 37.8 C H 131 H 22 92 07/31/22 04:00 160/94 H 07/31/22 03:45 37.8 C H 130 H 23 93 07/31/22 03:45 171/103 H 07/31/22 03:43 37.8 C H 127 H 22 96 07/31/22 03:43 171/106 H 07/31/22 03:30 37.8 C H 121 H 23 96 07/31/22 03:15 37.9 C H 125 H 19 93 07/31/22 03:00 111 H 27 H 98 07/31/22 03:00 170/105 H 07/31/22 02:57 173/109 H 07/31/22 02:57 115 H 16 96 07/31/22 02:50 119 H 11 L 94 07/31/22 02:50 155/100 H 07/31/22 02:48 91 07/31/22 03:10 118 H 20 170/105 H 95 07/31/22 03:00 108 H 20 170/105 H 96 07/31/22 02:50 37.0 C 118 H 20 155/100 H 96 07/31/22 00:30 77 22 93 07/31/22 00:00 75 18 90 07/31/22 00:00 147/101 H 07/30/22 23:30 132 H 26 H 93 07/30/22 23:00 77 17 07/30/22 23:00 139/96 07/30/22 22:30 83 18 91 07/30/22 22:00 71 16 94 07/30/22 22:00 170/100 H 07/30/22 21:30 74 17 99 07/30/22 21:00 118 H 23 93 07/30/22 21:00 172/98 H 07/30/22 20:30 77 0 L 95 07/30/22 20:00 71 18 100 07/30/22 20:00 164/97 H 07/30/22 20:00 O2 Del Method O2 Flow Rate 07/31/22 05:15 07/31/22 05:15 07/31/22 05:00 07/31/22 05:00 07/31/22 04:45 07/31/22 04:45 07/31/22 04:30 07/31/22 04:30 07/31/22 04:15 07/31/22 04:15 07/31/22 04:00 07/31/22 04:00 07/31/22 03:45 07/31/22 03:45 07/31/22 03:43 07/31/22 03:43 07/31/22 03:30 07/31/22 03:15 07/31/22 03:00 07/31/22 03:00 07/31/22 02:57 07/31/22 02:57 07/31/22 02:50 07/31/22 02:50 07/31/22 02:48 07/31/22 03:10 Oxymask 10 07/31/22 03:00 Oxymask 10 07/31/22 02:50 Oxymask 10 07/31/22 00:30 07/31/22 00:00 07/31/22 00:00 07/30/22 23:30 07/30/22 23:00 07/30/22 23:00 07/30/22 22:30 07/30/22 22:00 07/30/22 22:00 07/30/22 21:30 07/30/22 21:00 07/30/22 21:00 07/30/22 20:30 07/30/22 20:00 07/30/22 20:00 07/30/22 20:00 Nasal Cannula 2 Resident Activity Tracking Resident Involvement: Resident Care Provided Care Provided: Adult Hospital Medicine
--- NOTE | 2022-07-31 08:38 | Fluoroscopy Report ---
FL knee LT 1 or 2V CLINICAL HISTORY: LEFT KNEE EX FIX COMPARISON STUDY: Left tibia and fibula radiographs July 30, 2022. FLUOROSCOPY TIME: 17 seconds. FLUOROSCOPIC IMAGES: 6 FINDINGS: Fluoroscopy was provided during external fixation. Left tibial and fibular fractures appear similar to prior radiographs. IMPRESSION: Fluoroscopy provided during external fixation. ACT 112: Negative or not required by law. Electronically signed by: Carlos Hinton M.D. 07/31/2022 8:37 AM
[2022-07-31] MEDS: FOLIC ACID 1 MG in SYRINGE 9.8 ML IV SCH (08:54)
[2022-07-31] MEDS: ENOXAPARIN INJ 30 MG/0.3 ML SYR SQ SCH ×2 (08:54→18:39)
[2022-07-31] MEDS: THIAMINE HCL 100 MG in SYRINGE 9 ML IV SCH (08:54)
[2022-07-31] MEDS: NICOTINE 14 MG/24 HR PATCH TD SCH (09:29)
[2022-07-31] MEDS: LORazepam 2 MG in SYRINGE 0 ML IV PRN ×2 (09:42→20:54)
--- NOTE | 2022-07-31 09:48 | Emergency Department Note ---
Impression & Plan Closed fracture of proximal end of left tibia and fibula, Closed fracture of tibial plateau, History of alcohol abuse ED Provider Note CHIEF COMPLAINT: Left knee pain, fall HISTORY OF PRESENT ILLNESS: This 26-year-old male patient presents to the emergency department with complaints of left knee pain after a fall from a box truck that was parked. The patient states he was leaning over trying to hit a button to elevate the platform when his foot got caught in a chain. 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 He states he twisted and fell about 3 feet and his boss presents with a picture of the incident. The ambulance was called. Primary medical command, patient did receive IV fentanyl and Zofran for pain control in route to our facility. Patient denies any head trauma, neck pain or back pain. He denies any loss of consciousness, heart palpitations, shortness of breath or abdominal pain. He believes that this was a mechanical fall not related to syncope or dizziness. REVIEW OF SYSTEMS: A review of systems was performed with positives and pertinent negatives listed in the history of present illness. 10 systems were reviewed and are otherwise negative. ALLERGIES: see below MEDICATIONS: see below PMH: see below SOCIAL HISTORY: see below DDx: Fracture, dislocation, contusion, intra-abdominal, pneumothorax, intrathoracic, intracranial, neurologic, compartment syndrome, rhabdomyolysis, subluxation, ligamentous injury, neurovascular as well as other pathologies. PHYSICAL EXAM: Vital signs reviewed. General: 26-year-old male, in significant discomfort. HEENT: No scleral icterus, PERRLA, neck supple. Atraumatic. Cardiovascular: Regular rate and rhythm, no extra sounds. Pulmonary: Clear to auscultation bilaterally, normal work of breathing. Abdomen: Soft, nontender, nondistended, positive bowel sounds. Musculoskeletal: Left knee with swelling, held in a position of comfort at a 90 degree angle. Pillow placed under the knee. Neurologic: Patient awake alert and oriented x 3, speech is clear. Neurovascularly intact distally. Skin: Warm, dry, no rash EMERGENCY DEPARTMENT COURSE/MDM: This patient was evaluated and appeared to be in significant distress. IV access was obtained and laboratory work was drawn. Patient was medicated with multiple doses of IV narcotics including Dilaudid, fentanyl and morphine, none working better than the other. Patient was hydrated with normal saline solution. X-rays of the left knee/tib-fib reveal a proximal tib-fib fracture. I did discuss the case with Dr. Lopez of orthopedic surgery. He reviewed the films. He felt the patient should be transferred due to the atraumatic nature of the incident and the fracture. I did speak with orthopedic surgery at [facility] who requested speak with Dr. Lopez directly. It was determined that the patient would go to the operating room at our facility for external fixator and transfer at a later time for their orthopedic trauma team. Patient does have a history of alcohol abuse and Dr. Lopez has requested medical consultation for admission. The hospitalist team was contacted. Patient was placed in a knee immobilizer for better support. He is aware of the plan and agreed. MONITORING: An order for cardiac monitoring was placed and the patient is noted to be in a sinus tachycardia at 112 beats per minute. RADIOLOGY: See below DISPOSITION: Admission I have personally spent greater than 50 minutes of critical care time in the direct management of this patient. This includes bedside care, interpretation of diagnostic studies, and testing, discussion with consultants, patient, and family members, and other required patient management activities. This 50 minutes is in excess of all separately billable procedures. Past Med/Surg History Medical History Abrasion of face Abrasion of hand, right Acne Acute sinusitis Alcohol abuse Ankle joint pain Ankle sprain Anxiety and depression Backache Bursitis, traumatic Cellulitis of left leg Club-foot resolved with surgery as Dental disorder Elbow contusion Elbow injury Facial contusion Fall Foot sprain Hand abrasion Hand injury Hand laceration Head injury Head injury Injury of hand, right Open wound of hand Open wound of leg Rib pain on left side Right forearm injury Tobacco dependence Urinary frequency Urinary urgency Visit for suture removal Visual impairment Wheezing Surgical History H/O foot surgery Family History Grandmother (Maternal) Stroke Denies family history of Ovarian cancer Prostate cancer Myocardial infarction Breast cancer Lung cancer Colorectal cancer Social History Smoking Status: Current every day smoker Tobacco Type: Cigarettes Age Started Using Tobacco: 12; packs per day: 1; Cigarettes Per Day: 15-20; Second Hand Exposure: Yes; Hx Alcohol Use: Yes Alcohol type: beer Alcohol Intake Frequency Comment: "enough to keep me going. I stopped for 2-3 days and had a seizure" Hx Substance Use: Yes Last Used Substance Other:: this morning 07/30/22 Preferred Language: Wolof Communication Ability: Effective Visual Impairment: No Limitations Hearing Ability: Normal Research Director Required: No Beliefs That Will Affect Care: None marital status: Single Current Living Situation: Alone Feels Safe at Home: Yes Childhood Exposure to Second-Hand Smoke: Yes (parents) Assistive Devices: None Allergies Allergies Allergy/AdvReac Type Severity Reaction Status Date / Time bee venom protein (honey bee) Allergy Intermediate Hives Verified 07/30/22 15:05 Home Meds Previous Rx's Medication Instructions Recorded albuterol sulfate 90 mcg/actuation 2 puff inhalation Q6H PRN 04/22/22 aerosol inhaler (ProAir HFA) shortness of breath or wheezing #6.7 grams Results & Data (ED) Vital Signs Vital Signs - 24 hr 07/30/22 13:10 07/30/22 13:30 07/30/22 14:00 Temperature 37.0 C Temperature Source Oral Pulse Rate 125 H 112 H 110 H Pulse Rate from SpO2 Sensor Respiratory Rate 24 24 26 H Respiratory Effort / Characteristics Non-Labored Spontaneous Respiratory Depth Normal Respiratory Pattern Tachypnea Blood Pressure 163/100 H 135/102 H Blood Pressure Mean 121 113 Pulse Oximetry 100 94 Oxygen Delivery Method Room Air Sepsis Recent Fever Within 48 Hours No Sepsis New/Unexplained Change in Mental Status N/A Sepsis Action Taken by Nursing No Action Required 07/30/22 14:01 07/30/22 14:01 07/30/22 14:30 Temperature Temperature Source Pulse Rate 102 H Pulse Rate from SpO2 Sensor Respiratory Rate 20 Respiratory Effort / Characteristics Respiratory Depth Respiratory Pattern Blood Pressure 154/81 H 148/87 H Blood Pressure Mean 105 107 Pulse Oximetry Oxygen Delivery Method Sepsis Recent Fever Within 48 Hours Sepsis New/Unexplained Change in Mental Status Sepsis Action Taken by Nursing 07/30/22 14:30 07/30/22 15:00 07/30/22 15:00 Temperature Temperature Source Pulse Rate 97 H 78 Pulse Rate from SpO2 Sensor 99 H 83 Respiratory Rate 18 18 Respiratory Effort / Characteristics Respiratory Depth Respiratory Pattern Blood Pressure 144/78 H Blood Pressure Mean 100 Pulse Oximetry 95 92 Oxygen Delivery Method Sepsis Recent Fever Within 48 Hours Sepsis New/Unexplained Change in Mental Status Sepsis Action Taken by Nursing 07/30/22 15:30 07/30/22 15:30 Temperature Temperature Source Pulse Rate 90 Pulse Rate from SpO2 Sensor Respiratory Rate 19 Respiratory Effort / Characteristics Respiratory Depth Respiratory Pattern Blood Pressure 162/87 H Blood Pressure Mean 112 Pulse Oximetry Oxygen Delivery Method Sepsis Recent Fever Within 48 Hours Sepsis New/Unexplained Change in Mental Status Sepsis Action Taken by Jail Medications Current Medication List: was personally reviewed by me Laboratory Data Attestation: I reviewed the patient's lab results. Result diagrams: 08/02/22 04:12 08/02/22 04:12 Lab Results 07/30/22 07/30/22 07/30/22 Range/Units 13:11 13:11 13:11 WBC 10.55 (4.8-10.8) K/ul RBC 5.34 (4.63-6.08) M/uL Hgb 16.2 (14.0-18.0) g/dl Hct 45.9 (40.1-51.0) % MCV 86.0 (80.0-100.0) fL MCH 30.3 (25.0-34.0) pg MCHC 35.3 (32.0-36.0) g/dL RDW Std Deviation 44.3 (36.4-46.3) fL RDW Coeff of Kory 13.9 (11.5-14.5) % Plt Count 347 (130-400) K/uL MPV 8.8 L (9.4-12.4) fL Immature Gran % (Auto) 0.2 % Neut % (Auto) 73.7 % Lymph % (Auto) 16.2 % [place] % (Auto) 8.2 % Eos % (Auto) 0.6 % Baso % (Auto) 1.1 % Neut # (Auto) 7.78 H (1.4-6.5) K/uL Lymph # (Auto) 1.71 (1.2-3.4) K/uL [place] # (Auto) 0.86 H (0.24-0.82) K/uL Eos # (Auto) 0.06 (0-0.50) K/uL Baso # (Auto) 0.12 (0-0.2) K/uL Immature Gran # (Auto) 0.02 (0.00-0.02) K/uL PT (9.0-12.0) Seconds INR (0.9-1.1) APTT (21.0-31.0) Seconds PTT Ratio Sodium 133 L (136-145) mmol/L Potassium 3.5 (3.5-5.1) mmol/L Chloride 98 (98-107) mmol/L Carbon Dioxide 20 L (21-32) mmol/L Anion Gap 15 H (3-11) BUN 6 (6-23) mg/dl Creatinine 1.00 (0.6-1.4) mg/dl Est Cr Clr Drug Dosing 102.8 ml/min Est GFR ( Amer) 118.2 ml/min Est GFR (Non-Af Amer) 102.0 ml/min BUN/Creatinine Ratio 6.0 L (10-20) Glucose 146 H (70-99(Fasting)) mg/dl Calcium 9.7 (8.5-10.1) mg/dl Total Bilirubin 1.3 H (0.2-1.0) mg/dl AST 35 (13-39) U/L ALT 25 (7-52) U/L Alkaline Phosphatase 100 (34-104) U/L Total Protein 7.7 (6.0-8.3) gm/dl Albumin 4.6 (3.4-5.0) gm/dl Globulin 3.1 (2.5-4.0) gm/dl Albumin/Globulin Ratio 1.5 (0.9-2) Ethyl Alcohol mg/dL < 10.0 (<10.0) mg/dl SARS-CoV-2, RNA, NAAT (NEGATIVE) 07/30/22 07/30/22 Range/Units 13:11 13:55 WBC (4.8-10.8) K/ul RBC (4.63-6.08) M/uL Hgb (14.0-18.0) g/dl Hct (40.1-51.0) % MCV (80.0-100.0) fL MCH (25.0-34.0) pg MCHC (32.0-36.0) g/dL RDW Std Deviation (36.4-46.3) fL RDW Coeff of Kory (11.5-14.5) % Plt Count (130-400) K/uL MPV (9.4-12.4) fL Immature Gran % (Auto) % Neut % (Auto) % Lymph % (Auto) % [place] % (Auto) % Eos % (Auto) % Baso % (Auto) % Neut # (Auto) (1.4-6.5) K/uL Lymph # (Auto) (1.2-3.4) K/uL [place] # (Auto) (0.24-0.82) K/uL Eos # (Auto) (0-0.50) K/uL Baso # (Auto) (0-0.2) K/uL Immature Gran # (Auto) (0.00-0.02) K/uL PT 11.2 (9.0-12.0) Seconds INR 1.1 (0.9-1.1) APTT 25.4 (21.0-31.0) Seconds PTT Ratio 0.9 Sodium (136-145) mmol/L Potassium (3.5-5.1) mmol/L Chloride (98-107) mmol/L Carbon Dioxide (21-32) mmol/L Anion Gap (3-11) BUN (6-23) mg/dl Creatinine (0.6-1.4) mg/dl Est Cr Clr Drug Dosing ml/min Est GFR ( Amer) ml/min Est GFR (Non-Af Amer) ml/min BUN/Creatinine Ratio (10-20) Glucose (70-99(Fasting)) mg/dl Calcium (8.5-10.1) mg/dl Total Bilirubin (0.2-1.0) mg/dl AST (13-39) U/L ALT (7-52) U/L Alkaline Phosphatase (34-104) U/L Total Protein (6.0-8.3) gm/dl Albumin (3.4-5.0) gm/dl Globulin (2.5-4.0) gm/dl Albumin/Globulin Ratio (0.9-2) Ethyl Alcohol mg/dL (<10.0) mg/dl SARS-CoV-2, RNA, NAAT NEGATIVE (NEGATIVE) Administered Medications Discontinued Medications Acetaminophen (Acetaminophen 325 Mg Tab) 650 mg PO Q4H PRN PRN Reason: Pain or Fever Stop: 08/29/22 17:56 Last Admin: 07/31/22 07:20 Dose: 650 mg Documented By: CRISTY Enoxaparin Sodium (Enoxaparin Inj 30 Mg/0.3 Ml Syr) 30 mg SQ Q12H MIKE Stop: 08/30/22 05:59 Last Admin: 08/02/22 18:35 Dose: 30 mg Documented By: Admin: 08/02/22 06:25 Dose: 30 mg Documented By: Admin: 08/01/22 18:20 Dose: 30 mg Documented By: Admin: 08/01/22 06:34 Dose: 30 mg Documented By: Admin: 07/31/22 18:39 Dose: 30 mg Documented By: Admin: 07/31/22 08:54 Dose: 30 mg Documented By: CRISTY Hydromorphone HCl (Hydromorphone Inj 1 Mg/Ml Syringe) 1 mg IV NOW STA Stop: 07/30/22 13:00 Last Admin: 07/30/22 13:08 Dose: 1 mg Documented By: JOHNY Hydromorphone HCl (Hydromorphone Inj 1 Mg/Ml Syringe) 1 mg IV Q1H PRN PRN Reason: Pain Stop: 08/13/22 15:14 Last Admin: 07/30/22 16:29 Dose: 1 mg Documented By: Admin: 07/30/22 15:19 Dose: 1 mg Documented By: OSORIO Hydromorphone HCl (Hydromorphone Inj 1 Mg/Ml Syringe) 1 mg IV Q3H PRN PRN Reason: Severe Pain (7,8,9,10) on NRS Stop: 08/13/22 17:56 Last Admin: 07/31/22 11:01 Dose: 1 mg Documented By: Admin: 07/31/22 07:19 Dose: 1 mg Documented By: Admin: 07/31/22 04:32 Dose: 1 mg Documented By: Admin: 07/30/22 20:56 Dose: 1 mg Documented By: Admin: 07/30/22 18:14 Dose: 1 mg Documented By: LINNETTE Hydromorphone HCl (Hydromorphone Senior Tax Manager 30 Mg/30 Ml) 30 mg IV PRN PRN; Protocol 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 Stop: 08/14/22 11:02 Last Admin: 08/02/22 13:05 Dose: 30 mg Documented By: MICHAEL Co-signed By: MARVA Admin: 07/31/22 17:23 Dose: 30 mg Documented By: LINNETTE Co-signed By: GERRI Admin: 07/31/22 14:54 Dose: 30 mg Documented By: LINNETTE Co-signed By: GRECIA Admin: 07/31/22 12:38 Dose: 30 mg Documented By: LINNETTE Co-signed By: GRECIA Hydromorphone HCl (Hydromorphone Inj 0.5 Mg/0.5 Ml Syr) 0.5 mg IV NOW STA Stop: 08/02/22 10:44 Last Admin: 08/02/22 11:16 Dose: 0.5 mg Documented By: MICHAEL Hydromorphone HCl (Hydromorphone Inj 2 Mg/Ml Syr/Vial) 2 mg IV Q6H PRN PRN Reason: Pain Stop: 08/16/22 18:43 Last Admin: 08/03/22 01:35 Dose: 2 mg Documented By: TP Sodium Chloride (Nss 1000ml) 1,000 mls @ 999 mls/hr IV .Q1H1M ONE Stop: 07/30/22 14:00 Last Infusion: 07/30/22 14:51 Dose: 0 mls/hr Documented By: Admin: 07/30/22 13:10 Dose: 999 mls/hr Documented By: MT Multivitamins 10 ml/ Thiamine HCl 100 mg/ Folic Acid 1 mg/Sodium Chloride 1,011.2 mls @ 1,011.2 mls/hr IV .Q1H ONE Stop: 07/30/22 14:26 Last Infusion: 07/30/22 15:00 Dose: 0 mls/hr Documented By: Admin: 07/30/22 13:47 Dose: 1,011.2 mls/hr Documented By: MT Acetaminophen (Ofirmev) 1,000 mg in 100 mls @ 400 mls/hr IV Q8H PRN PRN Reason: Fever/Mild Pain (Pain 1,2,3) Stop: 08/02/22 17:56 Last Infusion: 08/01/22 15:00 Dose: 0 mls/hr Documented By: Admin: 08/01/22 14:39 Dose: 400 mls/hr Documented By: Infusion: 07/31/22 18:35 Dose: 0 mls/hr Documented By: Admin: 07/31/22 17:48 Dose: 400 mls/hr Documented By: Infusion: 07/30/22 19:52 Dose: 0 mls/hr Documented By: Admin: 07/30/22 19:37 Dose: 400 mls/hr Documented By: TP Lactated Ringer's (Lr) 1,000 mls @ 60 mls/hr IV .[id number] MIKE Stop: 08/29/22 17:56 Last Infusion: 08/02/22 10:55 Dose: 0 mls/hr Documented By: Admin: 08/02/22 04:48 Dose: 120 mls/hr Documented By: Infusion: 08/02/22 04:39 Dose: 120 mls/hr Documented By: Admin: 08/01/22 20:19 Dose: 120 mls/hr Documented By: Infusion: 08/01/22 19:02 Dose: 120 mls/hr Documented By: Admin: 08/01/22 10:42 Dose: 120 mls/hr Documented By: Infusion: 08/01/22 10:42 Dose: 60 mls/hr Documented By: Admin: 08/01/22 04:48 Dose: 120 mls/hr Documented By: Infusion: 08/01/22 02:58 Dose: 120 mls/hr Documented By: Admin: 07/31/22 18:38 Dose: 120 mls/hr Documented By: Infusion: 07/31/22 18:38 Dose: 120 mls/hr Documented By: Admin: 07/31/22 11:03 Dose: 120 mls/hr Documented By: Infusion: 07/31/22 11:03 Dose: 120 mls/hr Documented By: Admin: 07/31/22 03:46 Dose: 120 mls/hr Documented By: Infusion: 07/31/22 03:46 Dose: 120 mls/hr Documented By: Admin: 07/30/22 19:36 Dose: 120 mls/hr Documented By: TP Folic Acid 1 mg/ Syringe 10 mls @ 5 mls/min IV QAM MIKE Stop: 08/29/22 18:29 Last Admin: 08/02/22 08:45 Dose: 5 mls/min Documented By: Admin: 08/01/22 08:31 Dose: 5 mls/min Documented By: [facility] Admin: 07/31/22 08:54 Dose: 5 mls/min Documented By: Admin: 07/30/22 19:37 Dose: 5 mls/min Documented By: TP Lorazepam 1 mg/ Syringe 1 mls @ 2 mls/min IV UD PRN; Protocol PRN Reason: EtOH Withdrawal AWSS Score 6,7 Stop: 08/29/22 17:56 Last Admin: 08/02/22 09:30 Dose: 2 mls/min Documented By: Admin: 08/01/22 18:07 Dose: 2 mls/min Documented By: [facility] Lorazepam 2 mg/ Syringe 2 mls @ 2 mls/min IV UD PRN; Protocol PRN Reason: EtOH Withdrawal AWSS Score 8,9 Stop: 08/29/22 17:56 Last Admin: 08/03/22 01:35 Dose: 2 mls/min Documented By: Admin: 08/02/22 19:16 Dose: 2 mls/min Documented By: Admin: 08/01/22 15:46 Dose: 2 mls/min Documented By: [facility] Admin: 08/01/22 13:15 Dose: 2 mls/min Documented By: [facility] Admin: 08/01/22 11:35 Dose: 2 mls/min Documented By: [facility] Admin: 08/01/22 10:13 Dose: 2 mls/min Documented By: [facility] Admin: 08/01/22 08:11 Dose: 2 mls/min Documented By: [facility] Admin: 07/31/22 20:54 Dose: 2 mls/min Documented By: Admin: 07/31/22 09:42 Dose: 2 mls/min Documented By: LINNETTE Lorazepam 3 mg/ Syringe 3 mls @ 2 mls/min IV ONCE PRN; Protocol PRN Reason: EtOH Withdrawal AWSS Score 10 & above Last Admin: 07/30/22 19:37 Dose: 2 mls/min Documented By: TP Thiamine HCl 100 mg/ Syringe 10 mls @ 2 mls/min IV QAM [facility] Stop: 08/29/22 18:29 Last Admin: 08/02/22 08:45 Dose: 2 mls/min Documented By: Admin: 08/01/22 08:31 Dose: 2 mls/min Documented By: Admin: 07/31/22 08:54 Dose: 2 mls/min Documented By: Admin: 07/30/22 19:37 Dose: 2 mls/min Documented By: MILAN Sodium Chloride (Nss 1000ml) 1,000 mls @ 15 mls/hr IV .Q24H MIKE Stop: 08/14/22 11:06 Last Admin: 08/02/22 12:27 Dose: 15 mls/hr Documented By: Infusion: 08/02/22 12:27 Dose: 15 mls/hr Documented By: Admin: 08/01/22 11:35 Dose: 15 mls/hr Documented By: Infusion: 08/01/22 11:35 Dose: 15 mls/hr Documented By: Admin: 07/31/22 12:50 Dose: 15 mls/hr Documented By: LINNETTE Ceftriaxone Sodium 2,000 mg/ (Dextrose) 70 mls @ 100 mls/hr IV Q24H MIKE; Protocol Stop: 08/04/22 11:14 Last Infusion: 08/02/22 13:24 Dose: 0 mls/hr Documented By: Admin: 08/02/22 12:27 Dose: 100 mls/hr Documented By: MICHAEL Lorazepam (Lorazepam 2 Mg/2 Ml Syr) 1 mg IV NOW STA; Protocol Stop: 07/30/22 13:28 Last Admin: 07/30/22 13:47 Dose: 1 mg Documented By: JOHNY Garcia (Remove Nicoderm Patch) 1 each N/A DAILY@0859 [facility] Stop: 08/30/22 08:58 Last Admin: 08/02/22 08:47 Dose: 1 each Documented By: Admin: 08/01/22 08:31 Dose: 1 each Documented By: Admin: 07/31/22 09:28 Dose: 1 each Documented By: LINNETTE Garcia (Remove Nicoderm Patch) 1 each N/A DAILY@0900 [facility] Stop: 09/01/22 08:59 Last Admin: 08/02/22 08:51 Dose: Not Given Documented By: MICHAEL Nicotine (Nicotine 14 Mg/24 Hr Patch) 14 mg TD QAM [facility] Stop: 08/29/22 15:14 Last Admin: 08/02/22 08:46 Dose: 14 mg Documented By: Admin: 08/01/22 09:56 Dose: 14 mg Documented By: Admin: 07/31/22 09:29 Dose: 14 mg Documented By: Admin: 07/30/22 15:21 Dose: 14 mg Documented By: AM Nicotine (Nicotine 21 Mg/24 Hr Tdsy) 21 mg TD QAM [facility] Stop: 08/31/22 09:59 Last Admin: 08/02/22 08:49 Dose: Not Given Documented By: Admin: 08/01/22 10:38 Dose: 21 mg Documented By: ALYSSA Ondansetron HCl (Ondansetron Inj 2 Mg/Ml 2 Ml Vial) 4 mg IV NOW STA Stop: 07/30/22 13:00 Last Admin: 07/30/22 13:08 Dose: 4 mg Documented By: JOHNY Potassium Chloride (Potassium Chloride Crtab 20 Meq Tabcr) 40 meq PO NOW STA Stop: 08/01/22 16:17 Last Admin: 08/01/22 18:19 Dose: 40 meq Documented By: [facility] Imaging Data Radiologist's Impression: Tibia/Fibula X-Ray 07/30/22 12:58 XR tibia fibula LT 2V HISTORY: 26 years-old Male Trauma acute pain of the left lower extremity status post trauma COMPARISON: None TECHNIQUE: 2 views of the left tibia and fibula FINDINGS: Acute comminuted, impacted and mildly displaced fracture of the fibular head and neck. Additional acute comminuted fractures of the proximal tibia with fracture lines involving the lateral aspect of the medial tibial plateau and intercondylar eminence. Transverse fracture component involves the proximal tibial metaphysis. The majority of the proximal tibial fracture involves the lateral tibial plateau which is displaced laterally 1.1 cm and the compressed approximately 6 mm. No dislocation. Moderate joint effusion with lipohemarthrosis. Mild spurring of the calcaneus. Mid to distal tibia and fibula appear intact. IMPRESSION: 1. Acute comminuted, impacted and displaced proximal tibial fracture with cortical depression of the lateral tibial plateau. 2. Acute, comminuted and displaced proximal fibular fracture. 3. Lipohemarthrosis of the knee. ACT 112: Negative or not required by law. The above report was generated using voice recognition software. It may contain grammatical, syntax or spelling errors. Electronically signed by: Beto Sam M.D. 07/30/2022 1:11 PM Blood Pressure Blood Pressure Findings: Elevated blood pressure Blood Pressure Disposition: further management by hospitalist Discharge Plan Visit Data Chief Complaint: Fall Stated Complaint: LEG PAIN, FALL ED Provider: Zee Zaman Discharge Problem: Closed fracture of proximal end of left tibia and fibula, Closed fracture of tibial plateau, History of alcohol abuse Patient Disposition: Admitted As Inpatient Discharge Instructions Interventions: ED Discharge Assessment Last Done: 07/30/22 17:08 : Closed fracture of proximal end of left tibia and fibula Qualifiers: Encounter type: initial encounter Qualified Code(s): S82.102A - Unspecified fracture of upper end of left tibia, initial encounter for closed fracture Closed fracture of tibial plateau Qualifiers: Encounter type: initial encounter Laterality: left Qualified Code(s): S82.142A - Displaced bicondylar fracture of left tibia, initial encounter for closed fracture
[2022-07-31 10:40] LABS: Appearance Urine Clear (Clear); Bacteria Urine Automated Negative (Negative); Bilirubin Urine Negative (Negative); Blood Urine Trace (Negative); Cast Urine Automated 0 /lpf (0-5); Color Urine Orange; Glucose Urine UA Negative (Negative); Ketones Urine 4+ (Negative); Leukocyte Esterase Urine Negative (Negative); Nitrite Urine Negative (Negative); Protein Urine Negative (Negative); RBC Urine Automated 0-4 /hpf (0-4); Specific Gravity Urine 1.014 (1.000-1.030); Urobilinogen Urine Negative (Negative)
--- NOTE | 2022-07-31 10:49 | Operative Report ---
Post Operative Report Pre & Post Diagnosis Operation Date: 07/31/22 01:00 Pre-Op Diagnosis: Left Tibial Plateau/Proximal Fibula Fracture, Possible Compartment Syndrome Post-Op Diagnosis: Left Tibial Plateau/Proximal Fibula Fracture, Possible Compartment Syndrome I identified the patient and participated in the time-out.: Yes Procedure Operation Date: 07/31/22 01:00 Actual Procedures p Left Leg Fasciotomies with Application of Wound Vac and Left Knee Spanning External Fixator (Left) - Beto Lopez DO Surgeon Beto Lopez, Alodize Machine Operator none Estimated Blood Loss 50 Findings Consistent with Post-Op Diagnosis See dictation Specimens None Indications 26-year-old male who presented to the emergency department yesterday afternoon after sustaining a fall on a box truck ramp resulting in a twisting injury to his left lower extremity. He presented to the emergency department where radiographs were obtained demonstrating a bicondylar left tibial plateau fracture with an associated proximal fibula fracture. At the time I discussed with the ED that given the patients complex injury pattern I recommended patient be transferred to a tertiary care center where he would have access to dedicated trauma services. Unfortunately, [facility] Orthopedist on-call denied the transfer and stated to call back regarding patient transfer after the weekend once patient had undergone temporary stabilization. Patient was then admitted to hospitalist service. Patient was then scheduled for planned placement of left knee spanning external fixator. However I received a call from nursing late in the evening concerned that the patient was having increased pain and swelling in his left lower extremity and reported some paresthesias. I evaluated the patient myself and he exhibited significant swelling in the left lower extremity compartments were noted to be firm and mildly compressible he did have sensation intact to light touch in distributions of the saphenous, superficial peroneal nerve, deep peroneal nerve, tibial and sural nerve distributions with some mild paresthesias. He was able to fire his tibialis anterior, extensor houses longus and gastrocsoleus complex. However there was pain with passive dorsiflexion and plantar flexion. Palpable dorsalis pedis and posterior tibial pulses were noted. Given patient's progressive swelling and clinical examination I discussed with him concern for progressive compartment syndrome of the left lower extremity. We did discussion regarding surgical intervention with left lower extremity fasciotomies and placement of a knee spanning external fixator with possible wound VAC placement. Risk include but not limited to: Infection, neurovascular injury, DVT, and need for subsequent surgical procedures. After reviewing these elected proceed with surgical intervention and consent was obtained. Description of Procedure Patient was identified and the left lower extremity was marked. He was then taken back to the operative suite where he received general anesthesia and Ancef per protocol. He was then prepped and draped in the standard orthopedic fashion. Timeout was then performed. A single lateral fasciotomy incision was then marked out facing on the fibular head distally towards the lateral malleolus. Skin incision was then made with scalpel. Subcutaneous tissue was then dissected down to the deep fascia. Flaps were then developed. Attention was first turned to the anterior compartment which was then released using Shay scissors in a longitudinal fashion. Next attention was turned to the lateral compartment where the same technique was performed using Shay scissors through the fascia. Attention was then turned to the posterior superficial compartment which was incised and released using Shay scissors superiorly and then inferiorly longitudinal direction. Lastly attention was turned to the deep posterior compartment. Overlying the posterolateral aspect of the fibula, the deep posterior compartment attachment was released off the fibula. At this time wounds were then copiously irrigated using normal saline solution. Tissues were noted to be pink in color and contractile to stimulation. Attention was then turned to placement of the ascending external fixator. Using the assistance of fluoroscopy and sites were marked out on the anterior lateral aspect of the femur. Incisions were made with a scalpel followed by dissection down to bone with a hemostat. 2 Steinmann pins were then placed bicortically through the femur. Positions were confirmed in AP and lateral fluoroscopy. Attention was then turned to the tibia. Fluoroscopy was used to assess the placement of the incisions to try and stay as far out of the zone of injury as possible. Two stab incisions were then made over the anteromedial aspect of the tibia. H emostat was then used to dissect down to bone. 2 Steinmann pins were then placed bicortically through the tibial shaft. Fluoroscopy was used to confirm bicortical placement. Attention was then turned to construction of the spanning external fixator. Appropriate clamps were then placed and carbon fiber rods. Using combination of traction and some gentle flexion of the fracture was reduced to satisfactory position and all planes and hardware were tightened. Regression obtained demonstrating satisfactory reduction of the fracture and placement of the external fixator. Fasciotomy incision was known to be able to be primarily closed therefore a wound VAC was then placed over the incision site. Several los were used to approximate the superficial edge of skin with the wound VAC foam. Adhesive was then applied and wound VAC was then placed to suction and noted to have a good seal. Pin sites were then cleaned and dressed using Xeroform followed by Kerlix. Patient tolerated the procedure well and was taken to the recovery room in hemodynamically stable condition Implants: Synthes large external fixator, Christine pins x 4, Clamps x 2, with Carbon fiber rods x2 I attest to the content of the Intraoperative Record and any orders documented therein. Any exceptions are noted below.
[2022-07-31] MEDS ORDERED: NALOXONE HCL 0.4 MG/1 ML VIAL/CARP IV PRN (11:03)
--- NOTE | 2022-07-31 12:34 | Orthopedic Progress Note ---
Date of Service July 31, 2022 Assessment & Plan (1) Leg fracture, left: Plan: Approximately 12 hours status post external fixation left lower extremity for bicondylar tibial plateau fracture. Left lower extremity fasciotomies secondary to compartment syndrome with application of external wound VAC. Bedrest with elevation of the left lower extremity for now. Nonweightbearing left lower extremity. DVT prophylaxis-Lovenox twice daily. Pain management-patient currently having FISH CHECKER started. Planning for transfer to [facility] tomorrow to their trauma service for definitive care. Admission and Anticipated Discharge Date Admission Date: July 30, 2022 Subjective Patient lying in bed awake and alert. He appears comfortable but states has been having a fair amount of pain since he has been here. He is not quite 12 hours post external fixator application along with lower extremity fasciotomy with application of wound VAC. Nursing is currently starting a FISH CHECKER for the patient. Patient has no new complaints. Physical Exam Physical Exam: Left lower extremity elevated off of the bed. External fixator dressings intact and appear dry. Wound VAC currently functioning and has approximately half of his current container filled with drainage. Patient is moving all of his toes of the left foot. States that he has some slight tingling in the fifth toe at this time. No other complaints. Results & Data ([facility]) Vital Signs (Past 12 Hours) Vital Signs Temp Pulse Pulse Resp BP BP Pulse Ox 07/31/22 09:00 07/31/22 08:00 120 H 07/31/22 09:00 37.7 C H 120 H 21 94 07/31/22 09:00 159/105 H 07/31/22 08:00 37.8 C H 126 H 18 92 07/31/22 08:00 145/95 H 07/31/22 08:00 07/31/22 07:30 38.0 C H 136 H 27 H 90 07/31/22 07:00 38.0 C H 126 H 21 93 07/31/22 07:00 154/88 H 07/31/22 06:36 37.9 C H 128 H 24 93 07/31/22 06:36 146/98 H 07/31/22 06:30 37.8 C H 131 H 19 90 07/31/22 05:15 37.7 C H 119 H 17 95 07/31/22 05:15 162/99 H 07/31/22 05:00 37.7 C H 118 H 13 94 07/31/22 05:00 160/105 H 07/31/22 04:45 37.8 C H 136 H 17 93 07/31/22 04:45 150/102 H 07/31/22 04:30 37.8 C H 123 H 19 92 07/31/22 04:30 160/103 H 07/31/22 04:15 37.8 C H 136 H 18 90 07/31/22 04:15 152/90 H 07/31/22 04:00 37.8 C H 131 H 22 92 07/31/22 04:00 160/94 H 07/31/22 03:45 37.8 C H 130 H 23 93 07/31/22 03:45 171/103 H 07/31/22 03:43 37.8 C H 127 H 22 96 07/31/22 03:43 171/106 H 07/31/22 03:30 37.8 C H 121 H 23 96 07/31/22 03:15 37.9 C H 125 H 19 93 07/31/22 03:00 111 H 27 H 98 07/31/22 03:00 170/105 H 07/31/22 02:57 173/109 H 07/31/22 02:57 115 H 16 96 07/31/22 02:50 119 H 11 L 94 07/31/22 02:50 155/100 H 07/31/22 02:48 91 07/31/22 03:10 118 H 20 170/105 H 95 07/31/22 03:00 108 H 20 170/105 H 96 07/31/22 02:50 37.0 C 118 H 20 155/100 H 96 O2 Del Method O2 Flow Rate 07/31/22 09:00 Room Air 07/31/22 08:00 07/31/22 09:00 07/31/22 09:00 07/31/22 08:00 07/31/22 08:00 07/31/22 08:00 Nasal Cannula 2 07/31/22 07:30 07/31/22 07:00 07/31/22 07:00 07/31/22 06:36 07/31/22 06:36 07/31/22 06:30 07/31/22 05:15 07/31/22 05:15 07/31/22 05:00 07/31/22 05:00 07/31/22 04:45 07/31/22 04:45 07/31/22 04:30 07/31/22 04:30 07/31/22 04:15 07/31/22 04:15 07/31/22 04:00 07/31/22 04:00 07/31/22 03:45 07/31/22 03:45 07/31/22 03:43 07/31/22 03:43 07/31/22 03:30 07/31/22 03:15 07/31/22 03:00 07/31/22 03:00 07/31/22 02:57 07/31/22 02:57 07/31/22 02:50 07/31/22 02:50 07/31/22 02:48 07/31/22 03:10 Oxymask 10 07/31/22 03:00 Oxymask 10 07/31/22 02:50 Oxymask 10 Laboratory Results Laboratory Results WBC 12.09 K/ul (4.8-10.8) H 07/31/22 03:58 RBC 4.46 M/uL (4.63-6.08) L 07/31/22 03:58 Hgb 13.4 g/dl (14.0-18.0) L 07/31/22 03:58 Hct 39.6 % (40.1-51.0) L 07/31/22 03:58 MCV 88.8 fL (80.0-100.0) 07/31/22 03:58 MCH 30.0 pg (25.0-34.0) 07/31/22 03:58 MCHC 33.8 g/dL (32.0-36.0) 07/31/22 03:58 RDW Std Deviation 45.0 fL (36.4-46.3) 07/31/22 03:58 RDW Coeff of Kory 13.7 % (11.5-14.5) 07/31/22 03:58 Plt Count 245 K/uL (130-400) 07/31/22 03:58 MPV 9.2 fL (9.4-12.4) L 07/31/22 03:58 Immature Gran % (Auto) 0.2 % 07/31/22 03:58 Neut % (Auto) 84.1 % 07/31/22 03:58 Lymph % (Auto) 7.7 % 07/31/22 03:58 Jackson % (Auto) 7.5 % 07/31/22 03:58 Eos % (Auto) 0.2 % 07/31/22 03:58 Baso % (Auto) 0.3 % 07/31/22 03:58 Neut # (Auto) 10.16 K/uL (1.4-6.5) H 07/31/22 03:58 Lymph # (Auto) 0.93 K/uL (1.2-3.4) L 07/31/22 03:58 Jackson # (Auto) 0.91 K/uL (0.24-0.82) H 07/31/22 03:58 Eos # (Auto) 0.02 K/uL (0-0.50) 07/31/22 03:58 Baso # (Auto) 0.04 K/uL (0-0.2) 07/31/22 03:58 Immature Gran # (Auto) 0.03 K/uL (0.00-0.02) H 07/31/22 03:58 PT 11.2 Seconds (9.0-12.0) 07/30/22 13:11 INR 1.1 (0.9-1.1) 07/30/22 13:11 APTT 25.4 Seconds (21.0-31.0) 07/30/22 13:11 PTT Ratio 0.9 07/30/22 13:11 Sodium 131 mmol/L (136-145) L 07/31/22 03:58 Sodium 131 mmol/L (136-145) L 07/31/22 03:58 Potassium 4.0 mmol/L (3.5-5.1) 07/31/22 03:58 Potassium 4.0 mmol/L (3.5-5.1) 07/31/22 03:58 Chloride 98 mmol/L (98-107) 07/31/22 03:58 Chloride 98 mmol/L (98-107) 07/31/22 03:58 Carbon Dioxide 24 mmol/L (21-32) 07/31/22 03:58 Carbon Dioxide 25 mmol/L (21-32) 07/31/22 03:58 Anion Gap 8 (3-11) 07/31/22 03:58 Anion Gap 9 (3-11) 07/31/22 03:58 BUN 5 mg/dl (6-23) L 07/31/22 03:58 BUN 5 mg/dl (6-23) L 07/31/22 03:58 Creatinine 0.69 mg/dl (0.6-1.4) D 07/31/22 03:58 Creatinine 0.70 mg/dl (0.6-1.4) 07/31/22 03:58 Est Cr Clr Drug Dosing 146.9 ml/min 07/31/22 03:58 Est Cr Clr Drug Dosing 149.0 ml/min 07/31/22 03:58 Est GFR ( Amer) 148.9 ml/min 07/31/22 03:58 Est GFR ( Amer) 149.7 ml/min 07/31/22 03:58 Est GFR (Non-Af Amer) 128.4 ml/min 07/31/22 03:58 Est GFR (Non-Af Amer) 129.2 ml/min 07/31/22 03:58 BUN/Creatinine Ratio 7.1 (10-20) L 07/31/22 03:58 BUN/Creatinine Ratio 7.2 (10-20) L 07/31/22 03:58 Glucose 118 mg/dl (70-99(Fasting)) H 07/31/22 03:58 Glucose 120 mg/dl (70-99(Fasting)) H 07/31/22 03:58 POC Glucose 96 mg/dl (70-99) 07/31/22 12:13 Calcium 8.5 mg/dl (8.5-10.1) 07/31/22 03:58 Calcium 8.5 mg/dl (8.5-10.1) 07/31/22 03:58 Ionized Calcium 1.08 mmol/L (1.12-1.32) L 07/31/22 03:58 Magnesium 1.4 mg/dl (1.7-2.4) L 07/31/22 03:58 Total Bilirubin 1.1 mg/dl (0.2-1.0) H 07/31/22 03:58 AST 28 U/L (13-39) 07/31/22 03:58 ALT 20 U/L (7-52) 07/31/22 03:58 Alkaline Phosphatase 80 U/L (34-104) 07/31/22 03:58 Total Creatine Kinase 214 U/L (30-223) 07/31/22 08:38 Total Protein 6.6 gm/dl (6.0-8.3) 07/31/22 03:58 Albumin 3.7 gm/dl (3.4-5.0) 07/31/22 03:58 Globulin 2.9 gm/dl (2.5-4.0) 07/31/22 03:58 Albumin/Globulin Ratio 1.3 (0.9-2) 07/31/22 03:58 Urine Color Bureau 07/31/22 10:16 Urine Appearance Clear (Clear) 07/31/22 10:16 Urine pH 6.0 (4.5-7.5) 07/31/22 10:16 Ur Specific [place] 1.014 (1.000-1.030) 07/31/22 10:16 Urine Protein Negative (Negative) 07/31/22 10:16 Urine Glucose (UA) Negative (Negative) 07/31/22 10:16 Urine Ketones 4+ (Negative) H 07/31/22 10:16 Urine Blood Trace (Negative) H 07/31/22 10:16 Urine Nitrite Negative (Negative) 07/31/22 10:16 Urine Bilirubin Negative (Negative) 07/31/22 10:16 Urine Urobilinogen Negative (Negative) 07/31/22 10:16 Ur Leukocyte Esterase Negative (Negative) 07/31/22 10:16 Urine WBC (Auto) 1-5 /hpf (0-5) 07/31/22 10:16 Urine RBC (Auto) 0-4 /hpf (0-4) 07/31/22 10:16 U Hyaline Cast (Auto) 0 /lpf (0-5) 07/31/22 10:16 U Epithel Cells (Auto) 5-10 /lpf (0-5) H 07/31/22 10:16 Urine Bacteria (Auto) Negative (Negative) 07/31/22 10:16 Nasal Screen MRSA (PCR) Negative (Negative) 07/30/22 18:00 Ethyl Alcohol mg/dL < 10.0 mg/dl (<10.0) 07/30/22 13:11 SARS-CoV-2, RNA, NAAT NEGATIVE (NEGATIVE) 07/30/22 13:55 Blood Type O Positive 07/31/22 00:05 Antibody Screen NEGATIVE 07/31/22 00:05 Impressions Tibia/Fibula X-Ray 07/30/22 12:58 XR tibia fibula LT 2V HISTORY: 26 years-old Male Trauma acute pain of the left lower extremity status post trauma COMPARISON: None TECHNIQUE: 2 views of the left tibia and fibula FINDINGS: Acute comminuted, impacted and mildly displaced fracture of the fibular head and neck. Additional acute comminuted fractures of the proximal tibia with fracture lines involving the lateral aspect of the medial tibial plateau and intercondylar eminence. Transverse fracture component involves the proximal tibial metaphysis. The majority of the proximal tibial fracture involves the lateral tibial plateau which is displaced laterally 1.1 cm and the compressed approximately 6 mm. No dislocation. Moderate joint effusion with lipohemarthrosis. Mild spurring of the calcaneus. Mid to distal tibia and fibula appear intact. IMPRESSION: 1. Acute comminuted, impacted and displaced proximal tibial fracture with cortical depression of the lateral tibial plateau. 2. Acute, comminuted and displaced proximal fibular fracture. 3. Lipohemarthrosis of the knee. ACT 112: Negative or not required by law. The above report was generated using voice recognition software. It may contain grammatical, syntax or spelling errors. Electronically signed by: Beto Sam M.D. 07/30/2022 1:11 PM Knee X-Ray 07/31/22 00:00 FL knee LT 1 or 2V CLINICAL HISTORY: LEFT KNEE EX FIX COMPARISON STUDY: Left tibia and fibula radiographs July 30, 2022. FLUOROSCOPY TIME: 17 seconds. FLUOROSCOPIC IMAGES: 6 FINDINGS: Fluoroscopy was provided during external fixation. Left tibial and fibular fractures appear similar to prior radiographs. IMPRESSION: Fluoroscopy provided during external fixation. ACT 112: Negative or not required by law. Electronically signed by: Carlos Hinton M.D. 07/31/2022 8:37 AM
[2022-07-31] MEDS: HYDROmorphone PCA 30 MG/30 ML IV PRN ×3 (12:38→17:23)
[2022-07-31] MEDS: SODIUM CHLORIDE 0.9% 1000ML 1,000 ML IV SCH (12:50)
[2022-07-31] MEDS: ACETAMINOPHEN 1,000 MG/100 ML VIAL IV PRN (17:48)
--- NOTE | 2022-07-31 18:02 | Billing Data ---
Date of Service July 31, 2022 Coding Level of Care Code 19353 Subseq Hosp Care Lvl 3
[2022-08-01] MEDS: LACTATED RINGER'S 1,000 ML IV SCH ×3 (04:48→20:19)
[2022-08-01 06:16] LABS: Basophils # (auto) 0.02 K/uL (0-0.2); Basophils % (auto) 0.2 %; Eosinophils # (auto) 0.05 K/uL (0-0.50); Eosinophils % (auto) 0.6 %; Hematocrit (blood only) 35.5 % (40.1-51.0); Hemoglobin 12.1 g/dl (14.0-18.0); Immature Granulocytes # (auto) 0.03 K/uL (0.00-0.02); Immature Granulocytes % (auto) 0.3 %; Lymphocytes # (auto) 1.27 K/uL (1.2-3.4); Lymphocytes % (auto) 14.3 %; Mean Corpuscular Hemoglobin 30.5 pg (25.0-34.0); Mean Corpuscular Hgb Conc 34.1 g/dL (32.0-36.0); Mean Corpuscular Volume 89.4 fL (80.0-100.0); Mean Platelet Volume 9.1 fL (9.4-12.4); Monocytes # (auto) 0.86 K/uL (0.24-0.82); Monocytes % (auto) 9.7 %; Neutrophils # (auto) 6.65 K/uL (1.4-6.5); Neutrophils % (auto) 74.9 %; Platelet Count 174 K/uL (130-400); RDW Coefficient of Variation 13.3 % (11.5-14.5); RDW Standard Deviation 43.9 fL (36.4-46.3); Red Blood Count 3.97 M/uL (4.63-6.08); White Blood Count 8.88 K/ul (4.8-10.8)
[2022-08-01] MEDS: ENOXAPARIN INJ 30 MG/0.3 ML SYR SQ SCH ×2 (06:34→18:20)
[2022-08-01 06:41] LABS: Anion Gap 8 (3-11); BUN Creatinine Ratio 5.2 (10-20); Blood Urea Nitrogen 3 mg/dl (6-23); Calcium 8.4 mg/dl (8.5-10.1); Carbon Dioxide 24 mmol/L (21-32); Chloride 94 mmol/L (98-107); Creatinine Clr Calc Pharmacy 177.3 ml/min; Est GFR (African American) > 150.0 ml/min; Est GFR (Non-African American) 138.8 ml/min; Glucose 113 mg/dl (70-99(Fasting)); Potassium 3.5 mmol/L (3.5-5.1); Sodium 126 mmol/L (136-145)
--- NOTE | 2022-08-01 07:46 | Orthopedic Progress Note ---
Date of Service August 01, 2022 Assessment & Plan (1) Leg fracture, left: Plan: Postop day 2 status post application external fixator for bicondylar tibial plateau fracture and fasciotomy left lower extremity for compartment syndrome. Bedrest with elevation of the left lower extremity for now. Nonweightbearing left lower extremity. DVT prophylaxis-Lovenox twice daily. Pain management-patient currently having CARPET MEASURER started. Planning for transfer to [facility] tomorrow to their trauma service for definitive care. Admission and Anticipated Discharge Date Admission Date: July 30, 2022 Subjective Postop day 2 Patient sleeping upon entry but easily awoken. States he still having pain off and on in the operative area but is tolerating. Using his CARPET MEASURER. States he is sleeping off and on and finding it difficult to sleep which is understandable. No other complaints at this time. Physical Exam Physical Exam: Wound VAC is functioning and appears to be intact. Patient has some drainage noted on his dressings from his pin sites on the distal tibia the proximal sites or without much drainage. Moving his toes well. Dorsalis pedis pulse strong. Decreased sensation noted in the toes to a small extent but otherwise intact. Results & Data ([facility]) Vital Signs (Past 12 Hours) Vital Signs Temp Pulse Resp BP Pulse Ox O2 Del Method 08/01/22 04:03 150/89 H 08/01/22 04:03 38.2 C H 128 H 23 98 08/01/22 04:00 38.2 C H 163 H 21 97 08/01/22 03:00 38.2 C H 129 H 96 08/01/22 02:00 38.3 C H 130 H 22 96 08/01/22 02:00 149/92 H 08/01/22 01:00 38.2 C H 126 H 25 H 94 08/01/22 01:00 159/94 H 08/01/22 00:00 38.1 C H 123 H 21 95 08/01/22 00:00 160/105 H 07/31/22 23:00 37.8 C H 126 H 25 H 95 07/31/22 23:00 147/89 H 07/31/22 22:00 37.7 C H 125 H 19 93 07/31/22 22:00 143/103 H 07/31/22 21:00 37.8 C H 125 H 26 H 94 07/31/22 21:00 155/102 H 07/31/22 20:00 37.8 C H 139 H 22 96 07/31/22 20:00 130/80 07/31/22 20:00 Room Air
[2022-08-01] MEDS: LORazepam 2 MG in SYRINGE 0 ML IV PRN ×5 (08:11→15:46)
[2022-08-01] MEDS: FOLIC ACID 1 MG in SYRINGE 9.8 ML IV SCH (08:31)
[2022-08-01] MEDS: THIAMINE HCL 100 MG in SYRINGE 9 ML IV SCH (08:31)
--- NOTE | 2022-08-01 08:34 | Hospitalist Progress Note ---
Date of Service August 01, 2022 Assessment & Plan (1) Leg fracture, left: Plan: Pt is a 26 yo male with PMH of alcohol abuse, tobacco use, anxiety, and depression presenting for a leg injury after a fall. Pt was found to have a comminuted, displaced left tibia and fibula fracture requiring trauma ortho intervention. Pt also required fasciotomy and external fixator d/t concern for compartment syndrome. Displaced left tibia and fibula fracture - s/p fasciotomy and external fixator 07/31 @ 0305, POD 2 - pt requiring ortho trauma for definitive management - tentative transfer to [facility] tomorrow? - Wound vac currently in place with external fixator - Pain still 07/11, has been receiving Dilaudid q3hr as able in addition to tylenol - 07/31 started dilaudid BOTANY PROFESSOR at 0.2 mg q15 min, increased to 0.3 mg overnight, maintained throughout day 08/01 Hyponatremia (126 08/01) - Ordered Urine Osm, Serum Osm, and Urine Na - Results indicated SIADH - Decreased patient's fluids to LR 60ml/hr - Repeat BMP @ 1500, Na 129, continue to follow HTN w/ Tachycardia - reactive to pain vs. PE vs. rhythm concern vs. ? - Pt denies SOB, chest pain, telemetry NSR - O2 sats have been as low as 88, usually occurring receiving Dilaudid - pt does not use O2 when offered - Pain control as above - Marketing Communications Coordinator consulted 07/31 - 08/01: Most likely pain induced tachycardia/HTN at this point, if symptoms develop and/or O2 sats drop, low threshold for CTA chest for possible PE Hx of alcohol abuse - Currently using AWSS - Lorazepam PRN based on [place] Tobacco use - Nicotine patch 21 mg q24hr 08/01 (2) Depression with anxiety: (3) Alcohol abuse: (4) Tobacco use: (5) Compartment syndrome of left lower extremity: Plan FEN: LR at 60, folic acid, thiamine DVT ppx: Lovenox 30 mg BID Code: Full Dispo: PCU while here, [facility] tomorrow? Pending Transfer Admission and Anticipated Discharge Date Admission Date: July 30, 2022 Supervising Physician Co-Signing Physician Notes I also saw the patient confirmed frey portions of the history and physical examination. Agree with the impression and plan as noted in the resident doc umentation. Upon exam this morning, patient seems to be fairly comfortable at rest without movement. He does have bouts of increased pain with any movement or with anybody touching his left lower extremity. Exam 153/111, 126, 17, 38, 96% room air Alert and oriented. Respirations nonlabored Heart regular but tachycardic Strong distal pulses, cap refill less than 2 seconds Data Hemoglobin 12.1, platelet count 174 WBC 8.88 Sodium 126, potassium 3.5, BUN 3, creatinine 0.58 Impression and Plan Application of external fixator for bicondylar tibial plateau fracture and fasciotomy for compartment syndrome, postop day #2 Hyponatremia Tachycardia Appreciate orthopedic consultation Discussion with tertiary care center ([facility]) he will have excepted the patient for definitive care, pending bed availability Pain control Decrease IV fluids, monitor serum sodium Suspect tachycardia secondary to combination of pain, anxietyno definitive signs of alcohol withdrawal, although this may be contributing in part to his tachycardia Additional per resident documentation Paulina George is a 26 year old male with history of tobacco use, depression, anxiety, alcohol abuse, and low back pain who presented 07/30 after a fall from a truck He was found to have tibia/fibula fractures in his left lower extremity. Patient subsequently developed compartment syndrome which required fasciotomy 07/31. He has an external fixation device in place on the LLE. Patient is pending transfer to [facility] for definitive management of his fractures. 08/01: Patient resting comfortably upon arrival to room. Upon awakening, notes pain 10/10 in LLE, unchanged with addition of medications. Patient aware that appropriate surgical management will help with pain control. Using BOTANY PROFESSOR. States he is very tired. No chest pain, dyspnea, abdominal pain, or bowel/bladder pain. POD #2 from fasciotomy/external fixation. 07/31: Patient sleeping upon entry but easily awoken. States he still having pain off and on in the operative area but is tolerating. Using his BOTANY PROFESSOR. States he is sleeping off and on and finding it difficult to sleep which is understandable. No other complaints at this time. Review of Systems Review of Systems: As per HPI Physical Exam Physical Exam: Gen: NAD, fatigued but arousable with minimal stimuli Resp:Non-labored, no wheezing/rhonchi/rales, CTAB CV:RRR, normal S1/S2, no M/R/G Abd: Soft, non-distended, no TTP, normoactive bowels, no masses Extr: 2+ dp bilaterally * Open LLE wound a/w fasciotomy, external fixation present, notable edema of superior aspect of the allison/wound * LLE is not darkened or dusky in color, no evidence of expanding erythema or purulence Skin: No additional rashes lesions or erythema Results & Data Results & Data ([facility]) Vital Signs (Past 12 Hours) Vital Signs Temp Pulse Resp BP Pulse Ox 08/01/22 04:03 150/89 H 08/01/22 04:03 38.2 C H 128 H 23 98 08/01/22 04:00 38.2 C H 163 H 21 97 08/01/22 03:00 38.2 C H 129 H 96 08/01/22 02:00 38.3 C H 130 H 22 96 08/01/22 02:00 149/92 H 08/01/22 01:00 38.2 C H 126 H 25 H 94 08/01/22 01:00 159/94 H 08/01/22 00:00 38.1 C H 123 H 21 95 08/01/22 00:00 160/105 H 07/31/22 23:00 37.8 C H 126 H 25 H 95 07/31/22 23:00 147/89 H 07/31/22 22:00 37.7 C H 125 H 19 93 07/31/22 22:00 143/103 H 07/31/22 21:00 37.8 C H 125 H 26 H 94 07/31/22 21:00 155/102 H Resident Activity Tracking Resident Involvement: Resident Care Provided Care Provided: Adult [facility]
[2022-08-01] MEDS: NICOTINE 14 MG/24 HR PATCH TD SCH (09:56)
[2022-08-01] MEDS: NICOTINE 21 MG/24 HR TDSY TD SCH (10:38)
[2022-08-01] MEDS: SODIUM CHLORIDE 0.9% 1000ML 1,000 ML IV SCH (11:35)
[2022-08-01] MEDS: ACETAMINOPHEN 1,000 MG/100 ML VIAL IV PRN (14:39)
[2022-08-01 16:06] LABS: Anion Gap 11 (3-11); BUN Creatinine Ratio 5.6 (10-20); Blood Urea Nitrogen 3 mg/dl (6-23); Calcium 8.8 mg/dl (8.5-10.1); Carbon Dioxide 23 mmol/L (21-32); Chloride 95 mmol/L (98-107); Creatinine Clr Calc Pharmacy 190.4 ml/min; Est GFR (African American) > 150.0 ml/min; Est GFR (Non-African American) 142.9 ml/min; Glucose 101 mg/dl (70-99(Fasting)); Potassium 3.4 mmol/L (3.5-5.1); Sodium 129 mmol/L (136-145)
[2022-08-01] MEDS ORDERED: POTASSIUM CHLORIDE CRTAB 20 MEQ TABCR PO STA (16:16)
[2022-08-01] MEDS: LORazepam 1 MG in SYRINGE 0 ML IV PRN (18:07)
[2022-08-02 04:34] LABS: Hematocrit (blood only) 35.3 % (40.1-51.0); Hemoglobin 12.2 g/dl (14.0-18.0); Mean Corpuscular Hemoglobin 30.8 pg (25.0-34.0); Mean Corpuscular Hgb Conc 34.6 g/dL (32.0-36.0); Mean Corpuscular Volume 89.1 fL (80.0-100.0); Mean Platelet Volume 9.2 fL (9.4-12.4); Platelet Count 185 K/uL (130-400); RDW Coefficient of Variation 13.1 % (11.5-14.5); RDW Standard Deviation 42.8 fL (36.4-46.3); Red Blood Count 3.96 M/uL (4.63-6.08); White Blood Count 7.33 K/ul (4.8-10.8)
[2022-08-02] MEDS: LACTATED RINGER'S 1,000 ML IV SCH (04:48)
[2022-08-02 05:10] LABS: Alanine Aminotransferase 11 U/L (7-52); Albumin Globulin Ratio 1.2 (0.9-2); Albumin Level 3.5 gm/dl (3.4-5.0); Alkaline Phosphatase 67 U/L (34-104); Anion Gap 9 (3-11); Aspartate Aminotransferase 16 U/L (13-39); BUN Creatinine Ratio 6.9 (10-20); Blood Urea Nitrogen 4 mg/dl (6-23); Carbon Dioxide 25 mmol/L (21-32); Chloride 96 mmol/L (98-107); Creatine Kinase 68 U/L (30-223); Creatinine Clr Calc Pharmacy 177.3 ml/min; Est GFR (African American) > 150.0 ml/min; Est GFR (Non-African American) 138.8 ml/min; Globulin 2.9 gm/dl (2.5-4.0); Glucose 100 mg/dl (70-99(Fasting)); Potassium 3.8 mmol/L (3.5-5.1); Sodium 130 mmol/L (136-145); Total Protein 6.4 gm/dl (6.0-8.3)
[2022-08-02] MEDS: ENOXAPARIN INJ 30 MG/0.3 ML SYR SQ SCH ×2 (06:25→18:35)
--- NOTE | 2022-08-02 07:11 | Hospitalist Progress Note ---
Date of Service August 02, 2022 Assessment & Plan (1) Leg fracture, left: (2) Depression with anxiety: (3) Alcohol abuse: (4) Tobacco use: (5) Compartment syndrome of left lower extremity: Plan Pt is a 26 yo male with PMH of alcohol abuse, tobacco use, anxiety, and depression presenting for a leg injury after a fall. Pt was found to have a comminuted, displaced left tibia and fibula fracture requiring trauma ortho intervention. Pt also required fasciotomy and external fixator d/t concern for compartment syndrome. Displaced left tibia and fibula fracture - s/p fasciotomy and external fixator 07/31 @ 0305, POD 2 - Pt requiring ortho trauma for definitive management - tentative transfer to [facility] [address] 08/02 - Wound vac currently in place with external fixator - 07/31 started Dilaudid FORENSIC BALLISTICS EXPERT at 0.2 mg q15 min, increased to 0.3 mg overnight, maintained throughout day 08/01-08/02 - Pain 05/11 on 08/02, has been receiving FORENSIC BALLISTICS EXPERT Dilaudid and Tylenol PRN --- 08/02 Transfer remains pending to [facility] [address], awaiting bed. Ortho, in contact with [facility] as back up --- 08/02 Wound vac changed at bedside --- Ceftriaxone added per Ortho recommendations (empiric coverage) Hyponatremia(130 08/02) - Ordered Urine Osm, Serum Osm, and Urine Na - Results indicated SIADH - Decreased patient's fluids to LR 60ml/hr 08/01 - Discontinued fluids 08/02 --- Following HTN w/ Tachycardia - Pt denies SOB, chest pain, telemetry NSR - O2 sats low, usually occurring receiving Dilaudid - supplemental O2 in place (2L) sats @ 98% 08/02 - Pain control as above - [facility] consulted 07/31 - 08/01: Most likely pain induced tachycardia/HTN, low threshold for CTA chest for possible PE Hx of alcohol abuse - Currently using AWSS --- Lorazepam PRN based on [place] Tobacco use - Nicotine patch 21 mg q24hr 08/01 --- Declined patient request to go outside to smoke 08/02 LFEN: d/c LR, continue folic acid/thiamine DVT ppx: Lovenox 30 mg BID Code: Full Dispo: PCU while here, [facility] [address] today, Pending Transfer. Ortho following. Admission and Anticipated Discharge Date Admission Date: July 30, 2022 Supervising Physician Co-Signing Physician Notes I also saw the patient confirmed frey portions of the history and physical examination. I also discussed the case with the orthopedic team. I agree with the impression and plan as noted in the resident documentation. This morning, the wound VAC was removed by orthopedics and wound care. No obvious signs of infection. I also reached out again to [facility] regarding the patient's transfer. He was accepted in transfer by orthopedics yesterday; he is apparently next on the list for a bed. Exam 119/77, 131, 17, 38.2, 90% on nasal cannula 2 L/min Alert and oriented. Respirations nonlabored Heart regular but tachycardic Strong distal pulses, cap refill less than 2 seconds Data WBC 7.33, hemoglobin 12.2, plt count 185 Sodium 130, potassium 3.8, BUN 4, creatinine 0.58 Impression and Plan Application of external fixator for bicondylar tibial plateau fracture and fasciotomy for compartment syndrome, postop day #3 Hyponatremia Tachycardia Fever Appreciate orthopedic consultation Discussion with tertiary care center ([facility]), hopeful trans [facility] later today Decrease IV fluids to what is needed to maintain the FORENSIC BALLISTICS EXPERT, monitor serum sodium Given persistence of low-grade fever, add ceftriaxone to grams every 24 No obvious infection, no leukocytosis but will continue to monitor Suspect tachycardia secondary to combination of pain, anxietyno definitive signs of alcohol withdrawal, although this may be contributing in part to his tachycardia DVT prophylaxis with Lovenox Additional per resident documentation Paulina George is a 26 year old male with history of tobacco use, depression, anxiety, alcohol abuse, and low back pain who presented 07/30 after a fall from a truck He was found to have tibia/fibula fractures in his left lower extremity. Patient subsequently developed compartment syndrome which required fasciotomy 07/31. He has an external fixation device in place on the LLE. Patient is pending transfer to [facility] [address] for definitive management of his fractures. 08/02 0800: Pain improved 9/10, resting comfortably on arrival. Increasing patient frustration regarding transfer. Continues to use FORENSIC BALLISTICS EXPERT. Patient denies fevers, chills, or sweats. Ongoing fatigue. No chest pain, dyspnea, abdominal pain, or bowel/bladder pain. POD #3 from fasciotomy/external fixation. Patient expressed understanding of plan, patient is on waitlist for bed at [facility]. 0845: Called back to patient's room for patient frustration regarding delayed transfer. Discussed plan for transfer and waitlist at [facility]. Notified patient that following a call at 0830, patient was first on their list for transfer. Patient noted that he called [place] transfer line. Relayed that orthopedics PA plans to see patient this morning and is in communication with [facility] and Aruna. Patient expressed understanding of plan. 1600: Called back to patient's room for patient agitation, relayed that bed at [facility] was confirmed and transfer pending for this evening. This calmed patient. Patient was not hallucinating or experiencing delusions at this time. Patient denied any chest pain, shortness of breath, or abdominal pain. His leg pain was 8/10. Patient notes that he was experiencing some heart burn, this is chronic for him, it is mild at this time. Not requesting medication for heart burn. 08/01: Patient resting comfortably upon arrival to room. Upon awakening, notes pain 10/10 in LLE, unchanged with addition of medications. Patient aware that appropriate surgical management will help with pain control. Using FORENSIC BALLISTICS EXPERT. States he is very tired. No chest pain, dyspnea, abdominal pain, or bowel/bladder pain. POD #2 from fasciotomy/external fixation. Review of Systems Review of Systems: As per HPI Physical Exam Physical Exam: Gen: NAD, alert, conversive Resp:Non-labored, no wheezing/rhonchi/rales, CTAB CV:RRR, normal S1/S2, no M/R/G Abd: Soft, non-distended, no TTP, normoactive bowels, no masses Extr: 2+ dp bilaterally * Open LLE wound a/w fasciotomy, external fixation present * Mildly improved edema of superior aspect of the allison/wound * LLE is not darkened or dusky in color, no evidence of expanding erythema or purulence * Wound vac remains in place and is draining serosanguineous fluid Skin: No additional rashes lesions or erythema Results & Data Results & Data ([place]) Vital Signs (Past 12 Hours) Vital Signs Temp Pulse Resp BP Pulse Ox O2 Del Method O2 Flow Rate 08/02/22 06:00 38.0 C H 126 H 21 08/02/22 05:00 37.9 C H 148 H 12 98 08/02/22 04:00 37.7 C H 123 H 18 100 08/02/22 04:00 134/88 08/02/22 03:00 37.7 C H 139 H 36 H 08/02/22 02:01 37.8 C H 140 H 26 H 08/02/22 02:01 99/50 L 08/02/22 02:00 37.8 C H 139 H 16 81 L 08/02/22 01:00 37.9 C H 129 H 18 97 08/02/22 00:00 37.9 C H 139 H 21 98 08/02/22 00:00 139/95 08/01/22 23:00 38.1 C H 123 H 17 100 08/01/22 22:00 38.0 C H 134 H 20 97 08/01/22 22:00 134/86 08/01/22 21:00 38.0 C H 140 H 18 100 08/01/22 21:00 119/77 08/01/22 20:00 37.8 C H 135 H 16 98 08/01/22 20:00 136/92 08/01/22 20:00 Nasal Cannula 2 Resident Activity Tracking Resident Involvement: Resident Care Provided Care Provided: Adult Hospital Medicine
[2022-08-02] MEDS: THIAMINE HCL 100 MG in SYRINGE 9 ML IV SCH (08:45)
[2022-08-02] MEDS: FOLIC ACID 1 MG in SYRINGE 9.8 ML IV SCH (08:45)
[2022-08-02] MEDS: NICOTINE 14 MG/24 HR PATCH TD SCH (08:46)
[2022-08-02] MEDS: NICOTINE 21 MG/24 HR TDSY TD SCH (08:49)
[2022-08-02] MEDS: LORazepam 1 MG in SYRINGE 0 ML IV PRN (09:30)
[2022-08-02] MEDS ORDERED: HYDROmorphone INJ 0.5 MG/0.5 ML SYR IV STA (10:43)
--- NOTE | 2022-08-02 11:11 | Orthopedic Progress Note ---
Date of Service August 02, 2022 Assessment & Plan (1) Leg fracture, left: Plan: Postop day 3 status post application external fixator for bicondylar tibial plateau fracture and fasciotomy left lower extremity for compartment syndrome. Bedrest with elevation of the left lower extremity for now. Nonweightbearing left lower extremity. DVT prophylaxis-Lovenox twice daily. Pain management-patient currently having ASSET PROTECTION AGENT started. 0.5 mg of Dilaudid to be given as a one-time dose post wound VAC application. I discussed this with Dr. Jarrett. Pt continues to run tachycardic with temps fo 37.6 to 38. No visible source of infection. ? pain related/surgical intervention. Consider Rocephin prophylactically. Also discussed with Dr. Jarrett. Discharge planning-patient was cleared for transfer to [facility] for further care. He is currently next in line for the next open bed available and we are currently waiting for this to happen. Hopefully, pt will be transferred today. Admission and Anticipated Discharge Date Admission Date: July 30, 2022 Subjective Postop day [address] Patterson this morning. Nursing staff was concerned about the current wound VAC and that it was still not functioning properly. The wound continued to leak around the wound VAC itself even though it still functioned. I contacted Jessica Alatorre RN from wound care. She met me at the patient's room. Currently the patient was awake and alert and complaining of pain in his left lower extremity. Patient was not writhing in pain and appeared somewhat comfortable. I had also discussed the case with Dr. Lopez and he felt that if the wound VAC was functioning correctly, that it should be removed, wound reviewed, and either place a bulky dressing over the leg versus reapply wound VAC. No plans for further surgical treatment. This was discussed with the patient in detail. Plans were to remove the wound VAC and review the wound. Currently the patient is next in line for a bed [facility] where he will be transferred for definitive care. Physical Exam Physical Exam: Wound care team is present. The left lower extremity was elevated on 1 pillow. The current wound VAC was then delicately removed by the wound care team. Sterile saline soaks were applied to the sponge and the sponge was gently teased away from the tissue. Patient had multiple los maintaining the sponge position and these were removed by myself without difficulty. Patient was having some increased pain off and on during the removal process and several small breaks were taken to give him time to adjust. The black foam was successfully removed. This revealed a pink bed of tissue including muscle, tendon, fascia, subcutaneous fat. It was well perfused. There was no active bleeders that I can appreciate. Patient had a small amount of venous ooze after removing the black sponge which was minimal. No purulence noted. It was felt that the patient would be a good candidate for a second wound VAC. Wound care team then begin the task of reapplying a new wound VAC. There were also plans to do general pin care around the external fixator pins with redressing them. Neurovascular remains intact. Toes are mobile. Dorsalis pedis pulse present. Results & Data ([facility]) Vital Signs (Past 12 Hours) Vital Signs Temp Pulse Pulse Resp BP BP Pulse Ox 08/02/22 08:00 37.9 C H 138 H 16 131/88 98 08/02/22 07:00 08/02/22 06:00 38.0 C H 126 H 21 08/02/22 05:00 37.9 C H 148 H 12 98 08/02/22 04:00 37.7 C H 123 H 18 100 08/02/22 04:00 134/88 08/02/22 03:00 37.7 C H 139 H 36 H 08/02/22 02:01 37.8 C H 140 H 26 H 08/02/22 02:01 99/50 L 08/02/22 02:00 37.8 C H 139 H 16 81 L 08/02/22 01:00 37.9 C H 129 H 18 97 08/02/22 00:00 37.9 C H 139 H 21 98 08/02/22 00:00 139/95 Pulse Ox O2 Del Method O2 Del Method O2 Flow Rate O2 Flow Rate 08/02/22 08:00 Nasal Cannula 2 08/02/22 07:00 98 Nasal Cannula 2 08/02/22 06:00 08/02/22 05:00 08/02/22 04:00 08/02/22 04:00 08/02/22 03:00 08/02/22 02:01 08/02/22 02:01 08/02/22 02:00 08/02/22 01:00 08/02/22 00:00 08/02/22 00:00
[2022-08-02] MEDS: SODIUM CHLORIDE 0.9% 1000ML 1,000 ML IV SCH (12:27)
[2022-08-02] MEDS ORDERED: cefTRIAXone SODIUM 2,000 MG in DEXTROSE 5% 50 ML IV SCH (13:00)
[2022-08-02] MEDS: HYDROmorphone PCA 30 MG/30 ML IV PRN (13:05)
--- NOTE | 2022-08-02 16:39 | Discharge Summary ---
Date of Service August 02, 2022 Admission HPI Per Admitting Provider Patient is a 26-year-old male with a past medical history of alcohol abuse, tobacco use, lymphadenopathy, depression with anxiety, and low back pain No leukocytosis, hemoglobin normal, platelet 347. Sodium 133 on admission, potassium normal at 3.5. Baseline creatinine is normal, admitting creatinine is 1.0. Total bilirubin 1.3, down from prior 4.6. No transaminitis. Tip/fib x- ray 1. Acute comminuted, impacted and displaced proximal tibial fracture with cortical depression of the lateral tibial plateau. 2. Acute, comminuted and displaced proximal fibular fracture. 3. Lipohemarthrosis of the knee. Foot caught in box truck gate, fell off the back twisting knee. Patient seen at bedside, reports he had a mechanical fall of the back of a truck and has since had 10/10 pain going from his knee down to his leg. Feels sensation of soft touch is intact in the leg, but he cannot move his leg at all due to severe exacerbation of pain. He reports that he has a past history of severe alcohol abuse with 1 episode of seizure from withdrawal, but has not been a heavy drinker in many years at least 5. He reports that he most recently went for a full week without any alcohol use this past month. Did have some alcohol use 3 days ago, no alcohol use at all in the last 3 days. Denies tremors, shakes. Notes he is aware of what withdrawal feels like but has not had this since he was a heavy drinker years ago. Denies any lung problems, heart problems, or other medical problems. Reports he uses no daily medications. Reports he has had surgery on his feet as a child due to clubbing but is not sure of the details of this. Otherwise denies surgery Discussed extensively with ER provider who has been in touch with orthopedics, [facility], and tertiary care centers. Patient was recommended for transfer to a trauma center given fracture noted above. He is unfortunately not able to be transferred to [facility] and [facility] does not have trauma available this weekend. Case was reviewed between orthopedics and [facility], [facility] has accepted the patient for Monday but cannot take this weekend and require stabilization and admission to [facility] for the weekend. This was discussed with [facility] orthopedics and Dr. Lopez, anticipate operative intervention for stabilization tomorrow and ultimately transfer to [facility] where patient has been tentatively accepted for transfer on Monday. On ER assessment patient has been neurovascular intact. Reportedly with a history of some alcohol use, but no history of withdrawal and with negative alcohol on admission. Medical History: Reviewed Medications: Reviewed Surgical History: Reviewed. Allergies: Reviewed Social History: Past heavy etoh use, rare use recently. 0.75ppd tobacco. +smoek marijuana use periodically. Code Status: Full Code. Admission Exam Per Admitting Provider General: A&Ox3. NAD. Cooperative. HEENT: Atraumatic, normocephalic. Pupils equal and reactive to light. Vision and hearing grossly intact Pulm: CTAB A&P. -wheezes, -rales, -rhonchi. Symmetrical chest rise. No increase in work of breathing. No respiratory distress. Cardiac: Regular, tachycardic, -mrg. Radial pulses intact and symmetrical. Abdominal: Nontender, nondistended, soft. BS present. Extremities: Left leg externally rotated resting up on a pillow. Contusion at proximal medial left lower leg. Diffusely tender to palpation from the knee through the bilateral ankle. PT pulse and DP pulse are both palpable on the left and symmetrical compared to the right. Cap refill is less than 2 seconds. Sensation is intact to the toes bilaterally and symmetrically to soft touch. Patient is able to wiggle toes on the left foot, any other movement of the left lower extremity is limited by pain. Principal Diagnosis Tib/Fib Fracture Discharge Exam Gen: NAD, alert, conversive Resp:Non-labored, no wheezing/rhonchi/rales, CTAB CV:RRR, normal S1/S2, no M/R/G Abd: Soft, non-distended, no TTP, normoactive bowels, no masses Extr: 2+ dp bilaterally * Open LLE wound a/w fasciotomy, external fixation present * Mildly improved edema of superior aspect of the allison/wound * LLE is not darkened or dusky in color, no evidence of expanding erythema or purulence * Wound vac remains in place and is draining serosanguineous fluid Skin: No additional rashes lesions or erythema Discharge Data Allergies Allergy/AdvReac Type Severity Reaction Status Date / Time bee venom protein (honey bee) Allergy Intermediate Hives Verified 07/30/22 15:05 Consultations 07/30/22 17:57 Consult Orthopedic Surgery Routine 07/30/22 23:41 Consult Anesthesiology Stat Procedures Performed Operation Date: 07/31/22 01:00 Actual Procedures p Left Leg Fasciotomies with Application of Wound Vac (Left) - Beto Lopez DO s and Left Knee Spanning External Fixator (Left) - He Amin, DPM, MS Ordered Studies 07/31/22 FL knee LT 1 or 2V Routine Laboratory Results WBC 7.33 K/ul (4.8-10.8) 08/02/22 04:12 RBC 3.96 M/uL (4.63-6.08) L 08/02/22 04:12 Hgb 12.2 g/dl (14.0-18.0) L 08/02/22 04:12 Hct 35.3 % (40.1-51.0) L 08/02/22 04:12 MCV 89.1 fL (80.0-100.0) 08/02/22 04:12 MCH 30.8 pg (25.0-34.0) 08/02/22 04:12 MCHC 34.6 g/dL (32.0-36.0) 08/02/22 04:12 RDW Std Deviation 42.8 fL (36.4-46.3) 08/02/22 04:12 RDW Coeff of Kory 13.1 % (11.5-14.5) 08/02/22 04:12 Plt Count 185 K/uL (130-400) 08/02/22 04:12 MPV 9.2 fL (9.4-12.4) L 08/02/22 04:12 Immature Gran % (Auto) 0.3 % 08/01/22 06:00 Neut % (Auto) 74.9 % 08/01/22 06:00 Lymph % (Auto) 14.3 % 08/01/22 06:00 [place] % (Auto) 9.7 % 08/01/22 06:00 Eos % (Auto) 0.6 % 08/01/22 06:00 Baso % (Auto) 0.2 % 08/01/22 06:00 Neut # (Auto) 6.65 K/uL (1.4-6.5) H 08/01/22 06:00 Lymph # (Auto) 1.27 K/uL (1.2-3.4) 08/01/22 06:00 [place] # (Auto) 0.86 K/uL (0.24-0.82) H 08/01/22 06:00 Eos # (Auto) 0.05 K/uL (0-0.50) 08/01/22 06:00 Baso # (Auto) 0.02 K/uL (0-0.2) 08/01/22 06:00 Immature Gran # (Auto) 0.03 K/uL (0.00-0.02) H 08/01/22 06:00 PT 11.2 Seconds (9.0-12.0) 07/30/22 13:11 INR 1.1 (0.9-1.1) 07/30/22 13:11 APTT 25.4 Seconds (21.0-31.0) 07/30/22 13:11 PTT Ratio 0.9 07/30/22 13:11 Sodium 130 mmol/L (136-145) L 08/02/22 04:12 Potassium 3.8 mmol/L (3.5-5.1) 08/02/22 04:12 Chloride 96 mmol/L (98-107) L 08/02/22 04:12 Carbon Dioxide 25 mmol/L (21-32) 08/02/22 04:12 Anion Gap 9 (3-11) 08/02/22 04:12 BUN 4 mg/dl (6-23) L 08/02/22 04:12 Creatinine 0.58 mg/dl (0.6-1.4) L 08/02/22 04:12 Est Cr Clr Drug Dosing 177.3 ml/min 08/02/22 04:12 Est GFR ( Amer) > 150.0 ml/min 08/02/22 04:12 Est GFR (Non-Af Amer) 138.8 ml/min 08/02/22 04:12 BUN/Creatinine Ratio 6.9 (10-20) L 08/02/22 04:12 Glucose 100 mg/dl (70-99(Fasting)) H 08/02/22 04:12 POC Glucose 109 mg/dl (70-99) H 08/01/22 15:34 Osmolality 262 mOsm/kg (280-300) L 08/01/22 07:20 Calcium 9.0 mg/dl (8.5-10.1) 08/02/22 04:12 Ionized Calcium 1.08 mmol/L (1.12-1.32) L 07/31/22 03:58 Magnesium 1.4 mg/dl (1.7-2.4) L 07/31/22 03:58 Total Bilirubin 1.0 mg/dl (0.2-1.0) 08/02/22 04:12 AST 16 U/L (13-39) 08/02/22 04:12 ALT 11 U/L (7-52) 08/02/22 04:12 Alkaline Phosphatase 67 U/L (34-104) 08/02/22 04:12 Total Creatine Kinase 68 U/L (30-223) 08/02/22 04:12 C-Reactive Protein 10.29 mg/dl (0-0.5) H 07/31/22 08:38 Total Protein 6.4 gm/dl (6.0-8.3) 08/02/22 04:12 Albumin 3.5 gm/dl (3.4-5.0) 08/02/22 04:12 Globulin 2.9 gm/dl (2.5-4.0) 08/02/22 04:12 Albumin/Globulin Ratio 1.2 (0.9-2) 08/02/22 04:12 Procalcitonin 0.19 ng/ml (0-0.5) 07/31/22 08:38 Urine Color [place] 07/31/22 10:16 Urine Appearance Clear (Clear) 07/31/22 10:16 Urine pH 6.0 (4.5-7.5) 07/31/22 10:16 Ur Specific [place] 1.014 (1.000-1.030) 07/31/22 10:16 Urine Protein Negative (Negative) 07/31/22 10:16 Urine Glucose (UA) Negative (Negative) 07/31/22 10:16 Urine Ketones 4+ (Negative) H 07/31/22 10:16 Urine Blood Trace (Negative) H 07/31/22 10:16 Urine Nitrite Negative (Negative) 07/31/22 10:16 Urine Bilirubin Negative (Negative) 07/31/22 10:16 Urine Urobilinogen Negative (Negative) 07/31/22 10:16 Ur Leukocyte Esterase Negative (Negative) 07/31/22 10:16 Urine WBC (Auto) 1-5 /hpf (0-5) 07/31/22 10:16 Urine RBC (Auto) 0-4 /hpf (0-4) 07/31/22 10:16 U Hyaline Cast (Auto) 0 /lpf (0-5) 07/31/22 10:16 U Epithel Cells (Auto) 5-10 /lpf (0-5) H 07/31/22 10:16 Urine Bacteria (Auto) Negative (Negative) 07/31/22 10:16 Urine Osmolality 364 mOsm/kg (500-800) L 08/01/22 13:00 Ur Random Sodium 96 mmol/L 08/01/22 13:00 Nasal Screen MRSA (PCR) Negative (Negative) 07/30/22 18:00 Ethyl Alcohol mg/dL < 10.0 mg/dl (<10.0) 07/30/22 13:11 SARS-CoV-2, RNA, NAAT NEGATIVE (NEGATIVE) 07/30/22 13:55 Blood Type O Positive 07/31/22 00:05 Antibody Screen NEGATIVE 07/31/22 00:05 Impressions Tibia/Fibula X-Ray 07/30/22 12:58 XR tibia fibula LT 2V HISTORY: 26 years-old Male Trauma acute pain of the left lower extremity status post trauma COMPARISON: None TECHNIQUE: 2 views of the left tibia and fibula FINDINGS: Acute comminuted, impacted and mildly displaced fracture of the fibular head and neck. Additional acute comminuted fractures of the proximal tibia with fracture lines involving the lateral aspect of the medial tibial plateau and intercondylar eminence. Transverse fracture component involves the proximal tibial metaphysis. The majority of the proximal tibial fracture involves the lateral tibial plateau which is displaced laterally 1.1 cm and the compressed approximately 6 mm. No dislocation. Moderate joint effusion with lipohemarthrosis. Mild spurring of the calcaneus. Mid to distal tibia and fibula appear intact. IMPRESSION: 1. Acute comminuted, impacted and displaced proximal tibial fracture with cortical depression of the lateral tibial plateau. 2. Acute, comminuted and displaced proximal fibular fracture. 3. Lipohemarthrosis of the knee. ACT 112: Negative or not required by law. The above report was generated using voice recognition software. It may contain grammatical, syntax or spelling errors. Electronically signed by: Beto Sam M.D. 07/30/2022 1:11 PM Knee X-Ray 07/31/22 00:00 FL knee LT 1 or 2V CLINICAL HISTORY: LEFT KNEE EX FIX COMPARISON STUDY: Left tibia and fibula radiographs July 30, 2022. FLUOROSCOPY TIME: 17 seconds. FLUOROSCOPIC IMAGES: 6 FINDINGS: Fluoroscopy was provided during external fixation. Left tibial and fibular fractures appear similar to prior radiographs. IMPRESSION: Fluoroscopy provided during external fixation. ACT 112: Negative or not required by law. Electronically signed by: Carlos Hinton M.D. 07/31/2022 8:37 AM Hospital Course (1) Leg fracture, left: (2) Depression with anxiety: (3) Alcohol abuse: (4) Tobacco use: (5) Compartment syndrome of left lower extremity: Plan Pt is a 26 yo male with PMH of alcohol abuse, tobacco use, anxiety, and depression presenting for a leg injury after a fall. Pt was found to have a comminuted, displaced left tibia and fibula fracture requiring trauma ortho intervention. Pt also required fasciotomy and external fixator d/t concern for compartment syndrome. Displaced left tibia and fibula fracture - s/p fasciotomy and external fixator 07/31 @ 0305, POD 2 - Pt requiring ortho trauma for definitive management - tentative transfer to [facility] 08/02 - Wound vac currently in place with external fixator - 07/31 started Dilaudid ULTRASONIC SEAMING MACHINE OPERATOR at 0.2 mg q15 min, increased to 0.3 mg overnight, maintained throughout day 08/01-08/02 - Pain 05/11 on 08/02, has been receiving ULTRASONIC SEAMING MACHINE OPERATOR Dilaudid and Tylenol PRN --- 08/02 Transfer remains pending to [facility], awaiting bed. Ortho, in contact with [facility] as back up --- 08/02 Wound vac changed at bedside --- Ceftriaxone added per Ortho recommendations (empiric coverage) Hyponatremia(130 08/02) - Ordered Urine Osm, Serum Osm, and Urine Na - Results indicated SIADH - Decreased patient's fluids to LR 60ml/hr 08/01 - Discontinued fluids 08/02 --- Following HTN w/ Tachycardia - Pt denies SOB, chest pain, telemetry NSR - O2 sats low, usually occurring receiving Dilaudid - supplemental O2 in place (2L) sats @ 98% 08/02 - Pain control as above - Manager Private consulted 07/31 - 08/01: Most likely pain induced tachycardia/HTN, low threshold for CTA chest for possible PE Hx of alcohol abuse - Currently using AWSS --- Lorazepam PRN based on [place] Tobacco use - Nicotine patch 21 mg q24hr 08/01 --- Declined patient request to go outside to smoke 08/02 FEN: d/c LR, continue folic acid/thiamine DVT ppx: Lovenox 30 mg BID Code: Full Dispo[facility] Pending Transfer. Ortho following. Total Time Total Time Spent Total Time Spent (In Minutes): See attending attestation. Discharge Plan Discharge Items Patient Disposition: Transfer Acute [facility] Reason For Visit: TIB/FIB FXR, AWSS. Discharge Diagnosis: Tib/Fib Fracture, s/p Fasciotomy, external fixation, and wound vac Activity: Per Instructions section Non-emergency contact: Primary Care Provider Call non-emergency contact if: you have any medication questions, your temperature is above 101 and your wound has increased drainage Follow-up/Referrals: Butch Ferreira MD [Primary Care Provider] - Diet: Regular Addtl Attending Provider Instructions: You were admitted to the hospital for fracture of your tibia and fibula. Following this injury, you developed compartment syndrome which was treated with a fasciotomy. A wound vac was placed to aid int wound healing. External fixation devices were placed to help with stabilization of your fractures. While you were here, we managed your pain with a ULTRASONIC SEAMING MACHINE OPERATOR pump and Dilaudid. You were ultimately transferred to [facility] for definitive management of your fracture. Summary of care for [facility] Provider: Pt is a 26 yo male with PMH of alcohol abuse, tobacco use, anxiety, and depression presenting for a leg injury after a fall. Pt was found to have a comminuted, displaced left tibia and fibula fracture requiring trauma ortho intervention. Pt also required fasciotomy and external fixator d/t concern for compartment syndrome. Displaced left tibia and fibula fracture - s/p fasciotomy and external fixator 07/31 @ 0305, POD 2 - Pt requiring ortho trauma for definitive management - tentative transfer to [facility] 08/02 - Wound vac currently in place with external fixator - 07/31 started Dilaudid ULTRASONIC SEAMING MACHINE OPERATOR at 0.2 mg q15 min, increased to 0.3 mg overnight, maintained throughout day 08/01-08/02 - Pain 05/11 on 08/02, has been receiving ULTRASONIC SEAMING MACHINE OPERATOR Dilaudid and Tylenol PRN --- 08/02 Transfer remains pending to [facility], awaiting bed. Ortho, in contact with [facility] as back up --- 08/02 Wound vac changed at bedside Hyponatremia(130 08/02) - Ordered Urine Osm, Serum Osm, and Urine Na - Results indicated SIADH - Decreased patient's fluids to LR 60ml/hr 08/01 - Discontinued fluids 08/02 --- Following HTN w/ Tachycardia - Pt denies SOB, chest pain, telemetry NSR - O2 sats low, usually occurring receiving Dilaudid - supplemental O2 in place (2L) sats @ 98% 08/02 - Pain control as above - Manager Private consulted 07/31 - 08/01: Most likely pain induced tachycardia/HTN, low threshold for CTA chest for possible PE Hx of alcohol abuse - AWSS used during hospitalization and IV ativan provided. Most recent was 9 points 1137AM 08/02/22. - Patient reportedly per Aunt is "heavy" drinker - Recommend continuation of etoh withdrawal scale. Tobacco use - Nicotine patch 21 mg q24hr 08/01 --- Declined patient request to go outside to smoke 08/02 Patient was full code this admission. Dispo: transfer to [facility]. Please see copy of active inpatient meds list while at [facility]. Patient was on ULTRASONIC SEAMING MACHINE OPERATOR pump, discontinued for transfer. PRN dilaudid was for prior to transfer while off ULTRASONIC SEAMING MACHINE OPERATOR. Discontinue dilaudid while on ULTRASONIC SEAMING MACHINE OPERATOR. For reference for transfer facility; resume at transfer facility's discretion Pending Studies at Discharge: No Stand-Alone Forms: [facility] Sk[facility] Items Patient informed of condition?: Yes DNR: No Discharge Level of Care: Other Communicable Disease: No Discharge Prognosis: Stable Lines: Peripheral IV Urinary Catheter: Yes Medications and DC Order Prescriptions: Continued albuterol sulfate [ProAir HFA] 90 mcg/actuation HFA aerosol inhaler 2 puff INH Q6H PRN (Reason: shortness of breath or wheezing) Qty: 6.7 6RF Discharge Orders: Discharge Order (Routine); Ordered 08/02/22 Ordered By: Devante Ponce Admission Data Admit Date/Time: 07/30/22 15:54 Attending Provider: Hardik Patterson Admit Provider: Robert Ramirez Primary Care Provider: Butch Ferreira Other Providers: Robert Ramirez ; Beto Lopez ; Elpidio Fong Other Interventions: Discharge Summary Assessment (RN) Last Done: 08/03/22 01:49 Supervising Physician Co-Signing Physician Notes I also saw the patient confirmed frey portions of the history and physical examination. I also discussed the case with the orthopedic team. I agree with the impression and plan as noted in the resident documentation. This morning, the wound VAC was removed by orthopedics and wound care. No obvious signs of infection. I also reached out again to [facility] regarding the patient's transfer. He was accepted in transfer by orthopedics yesterday; he is apparently next on the list for a bed. Exam 119/77, 131, 17, 38.2, 90% on nasal cannula 2 L/min Alert and oriented. Respirations nonlabored Heart regular but tachycardic Strong distal pulses, cap refill less than 2 seconds Data WBC 7.33, hemoglobin 12.2, plt count 185 Sodium 130, potassium 3.8, BUN 4, creatinine 0.58 Impression and Plan Application of external fixator for bicondylar tibial plateau fracture and fasciotomy for compartment syndrome, postop day #3 Hyponatremia Tachycardia Fever Appreciate orthopedic consultation Discussion with tertiary care center ([facility]), hopeful transfer later today Decrease IV fluids to what is needed to maintain the ULTRASONIC SEAMING MACHINE OPERATOR, monitor serum sodium Given persistence of low-grade fever, add ceftriaxone to grams every 24 No obvious infection, no leukocytosis but will continue to monitor Suspect tachycardia secondary to combination of pain, anxietyno definitive signs of alcohol withdrawal, although this may be contributing in part to his tachycardia DVT prophylaxis with Lovenox Additional per resident documentation
[2022-08-02] MEDS ORDERED: HYDROmorphone INJ 2 MG/ML SYR/VIAL IV PRN (18:44)
[2022-08-02] MEDS: LORazepam 2 MG in SYRINGE 0 ML IV PRN (19:16)
[2022-08-03] MEDS: LORazepam 2 MG in SYRINGE 0 ML IV PRN (01:35)
== END 2022-08-03 02:04 | disposition short-term general hospital (02) | DRG 493 ==
LOC: ED 12:54 → 1E 15:54 → SUATTDRO 15:54 → 1E 17:08